=== PATIENT | female | born 1935 | race Caucasian/White ===

== ENCOUNTER 2017-11-23 16:14 | Inpatient (IN) | payer MEDICARE, OTHER ==
[~2017-11-23] VITALS: Ht 167.6 cm; Wt 190.0 kg
[~2017-11-23 16:14] MED LIST: BUDE200IP IH; BUDE200IP INH; CHOL10002 PO; CITRACAL + D E1 EACH PO; CYCL0.05OP OP; Cipro500 MG PO; Cranberry300 MG PO; ERGO400 PO; ESTR2 PO; Eye Drops15 ML OP; Flagyl250 MG PO; GABA300 PO; HYDCHL25 PO; Kristalose20 GM PO; LEVSOD200 PO; LOPE2C PO; METO25ER PO; MULVITB&C PO; MULVITMIND PO; NIFE60ER PO; Nexium40 MG PO; OCUVITE EYE +1 EACH PO; OXYB5 PO; PANT40 PO; PROBIOTIC1 EAC1 PO; PROM25 PO; SERT50 PO; SPIHYD PO; SPIR25 PO; SYNTHROID0.2 MG PO; Zofran Odt4 MG SL
[2017-11-23 17:47] LABS: BASOPHILS ABSOLUTE AUTO 0.04 K/mm3 (0.00-0.23); BASOPHILS PERCENT AUTO 1 % (0-2); EOSINOPHILS ABSOLUTE AUTO 0.44 K/mm3 (0.00-0.68); EOSINOPHILS PERCENT AUTO 5 % (0-6); Hematocrit 39.1 % (33.0-51.0); IMMATURE GRAN ABSOLUTE AUTO 0.04 K/mm3 (0.00-0.10); IMMATURE GRAN PERCENT AUTO 1 % (0-1); LYMPHOCYTES ABSOLUTE AUTO 1.33 K/mm3 (0.84-5.20); LYMPHOCYTES PERCENT AUTO 15 % (21-46); MONOCYTES ABSOLUTE AUTO 0.58 K/mm3 (0.16-1.47); MONOCYTES PERCENT AUTO 7 % (4-13); Mean Corpuscular HGB 29.9 pg (26.0-34.0); Mean Corpuscular HGB Conc 33.2 g/dL (31.5-36.5); Mean Corpuscular Volume 90 fL (80-100); Mean Platelet Volume 9.3 fL (9.1-12.4); NEUTROPHILS ABSOLUTE AUTO 6.19 K/mm3 (1.96-9.15); NEUTROPHILS PERCENT AUTO 72 % (41-73); Platelet Count 270 K/mm3 (150-400); RDW Standard Deviation 42.8 fL (35.1-46.3); Red Blood Cell Count 4.35 M/mm3 (3.80-5.20); White Blood Cell Count 8.62 K/mm3 (4.00-11.30)
[2017-11-23 18:04] LABS: Albumin, Blood 3.6 g/dL (3.4-5.0); Albumin/Globulin Ratio 0.9 (0.8-1.8); Bilirubin, Total 0.5 mg/dL (0.1-1.0); Bun/Creatinine Ratio 11.7 (12.0-20.0); Calcium, Blood 8.9 mg/dL (8.5-10.1); Creatinine, Blood 1.37 mg/dL (0.40-1.00); Globulin, Blood 3.9 g/dL (2.2-4.0); Potassium, Blood 3.9 mmol/L (3.5-5.5); Total Protein, Blood 7.5 g/dL (6.4-8.2)
[2017-11-23] MEDS ORDERED: Hair, Skin & N1 EACH PO (18:27)
[2017-11-23 19:41] LABS: Free Thyroxine 1.16 ng/dL (0.70-1.60)
[2017-11-23 19:43] LABS: Thyroid Stimulating Hormone 1.9 uIU/mL (0.360-4.800); Triiodothyronine, Free 2.05 pg/mL (2.18-3.98)
[2017-11-24 00:56] LABS: Bilirubin, Urine Neg (Neg); Blood, Urine Neg (Neg); Glucose Qualitative, Urine Neg (Neg); Ketones, Urine Neg (Neg); Leukocyte Esterase, Urine Neg (Neg); Nitrite, Urine Neg (Neg); Protein, Urine Neg (Neg); Specific Gravity, Urine 1.005 (1.003-1.022); Urobilinogen, Urine NORM (Normal)
[2017-11-24 01:03] LABS: Appearance, Urine Clear (Clear); Color, Urine Yellow (P-Yellow)
[2017-11-24 05:16] LABS: Bun/Creatinine Ratio 13.3 (12.0-20.0); Calcium, Blood 8.4 mg/dL (8.5-10.1); Creatinine, Blood 1.2 mg/dL (0.40-1.00); Potassium, Blood 3.6 mmol/L (3.5-5.5)
[2017-11-25 15:19] LABS: Test Name BRABGM
[2017-11-27 04:05] LABS: M. pneumoniae Ab, IgG 0.167 U/L (<0.100)
[2017-12-03 10:08] LABS: Bartonella quintana IgG Negative; Bartonella quintana IgM Negative
== END 2017-11-25 16:23 | disposition home or self-care (01) | DRG 307 ==
LOC: ER 16:14 → MEDS 18:54
PROVIDERS: Emergency Medicine; Family Medicine; Internal Medicine Infectious Disease
DX: I08.0 Rheumatic disorders of both mitral and aortic valves (principal); E11.22 Type 2 diabetes mellitus with diabetic chronic kidney disease; J84.89 Other specified interstitial pulmonary diseases; E03.9 Hypothyroidism, unspecified; I12.9 Hypertensive chronic kidney disease with stage 1 through stage 4 chronic kidney disease, or unspecified chronic kidney disease; N18.3 Chronic kidney disease, stage 3 (moderate); G89.29 Other chronic pain; M25.511 Pain in right shoulder; Z88.2 Allergy status to sulfonamides; Z88.8 Allergy status to other drugs, medicaments and biological substances; Z79.899 Other long term (current) drug therapy; Z87.891 Personal history of nicotine dependence
CPT/HCPCS: 36415; 71046; 80048; 80053; 81003; 83036; 83605; 84439; 84443; 84481; 85025; 85651; 86611; 86622; 86631; 86632; 86638; 86713; 86738; 87040; 93005; 93010; 93306; 96365; 96375; 99285; J0295; J1580; J1650; J3370

== ENCOUNTER → 2018-04-04 | Outpatient (CLI) | payer MEDICARE, OTHER ==
[~2018-04-04] MED LIST changes: +Hair, Skin & N1 EACH PO
[2018-04-04 09:47] LABS: Source, Urine Voided
[2018-04-04 12:34] LABS: Appearance, Urine Clear (Clear); Bilirubin, Urine Neg (Neg); Blood, Urine Neg (Neg); Color, Urine Yellow (P-Yellow); Glucose Qualitative, Urine Neg (Neg); Ketones, Urine Neg (Neg); Leukocyte Esterase, Urine Neg (Neg); Nitrite, Urine Neg (Neg); Protein, Urine Neg (Neg); Urobilinogen, Urine NORM (Normal)
== END | disposition home or self-care (01) ==
LOC: LAB 09:46 → LAB SHORT 09:46
PROVIDERS: Internal Medicine
DX: R32 Unspecified urinary incontinence (principal)
CPT/HCPCS: 81003

== ENCOUNTER → 2019-06-26 | Outpatient (CLI) | payer MEDICARE, OTHER ==
[2019-06-26 08:59] LABS: Source, Urine Clean Catch
[2019-06-26 11:23] LABS: Appearance, Urine Clear (Clear); Bilirubin, Urine Neg (Neg); Blood, Urine Neg (Neg); Color, Urine Yellow (P-Yellow); Glucose Qualitative, Urine Neg (Neg); Ketones, Urine Neg (Neg); Leukocyte Esterase, Urine Neg (Neg); Nitrite, Urine Neg (Neg); Protein, Urine Neg (Neg); Specific Gravity, Urine 1.015 (1.003-1.022); Urobilinogen, Urine NORM (Normal)
== END | disposition home or self-care (01) ==
LOC: LAB 08:57 → LAB SHORT 08:57 → LAB FUT 06-21 15:10
PROVIDERS: Internal Medicine
DX: N39.0 Urinary tract infection, site not specified (principal)
CPT/HCPCS: 81003

== ENCOUNTER → 2019-08-30 | Outpatient (CLI) | payer MEDICARE, OTHER ==
[2019-09-05 14:31] LABS: Stool Occult Bld Immuno 1 Negative (NEGATIVE)
[2019-09-05 14:32] LABS: Stool Occult Bld Immuno 2 Negative (NEGATIVE); Stool Occult Bld Immuno 3 Negative (NEGATIVE)
== END | disposition home or self-care (01) ==
LOC: LAB 08-01 12:05 → LAB FUT 08-29 16:25
PROVIDERS: Internal Medicine
DX: N18.3 Chronic kidney disease, stage 3 (moderate) (principal); R19.5 Other fecal abnormalities
CPT/HCPCS: 82270

== ENCOUNTER 2019-11-27 13:59 | Emergency (ER) | payer MEDICARE, OTHER ==
[~2019-11-27] VITALS: Ht 167.6 cm; Wt 88.5 kg
[2019-11-27 14:27] LABS: BASOPHILS ABSOLUTE AUTO 0.03 K/mm3 (0.00-0.23); BASOPHILS PERCENT AUTO 0 % (0-2); EOSINOPHILS PERCENT AUTO 2 % (0-6); Hematocrit 43.1 % (33.0-51.0); Hemoglobin 14.1 g/dL (11.5-16.0); IMMATURE GRAN ABSOLUTE AUTO 0.03 K/mm3 (0.00-0.10); IMMATURE GRAN PERCENT AUTO 0 % (0-1); LYMPHOCYTES ABSOLUTE AUTO 0.85 K/mm3 (0.84-5.20); LYMPHOCYTES PERCENT AUTO 7 % (21-46); MONOCYTES ABSOLUTE AUTO 0.72 K/mm3 (0.16-1.47); MONOCYTES PERCENT AUTO 6 % (4-13); Mean Corpuscular HGB 29.1 pg (26.0-34.0); Mean Corpuscular HGB Conc 32.7 g/dL (31.5-36.5); Mean Corpuscular Volume 89 fL (80-100); Mean Platelet Volume 9.5 fL (9.1-12.4); NEUTROPHILS ABSOLUTE AUTO 10.12 K/mm3 (1.96-9.15); NEUTROPHILS PERCENT AUTO 85 % (41-73); Platelet Count 288 K/mm3 (150-400); RDW Coefficient Variation 12.6 % (11.7-14.2); RDW Standard Deviation 41.6 fL (35.1-46.3); Red Blood Cell Count 4.85 M/mm3 (3.80-5.20); White Blood Cell Count 11.95 K/mm3 (4.00-11.30)
[2019-11-27 14:55] LABS: Alanine Aminotransfer (ALT/SGP 17 U/L (12-78); Albumin, Blood 3.9 g/dL (3.4-5.0); Albumin/Globulin Ratio 0.9 (0.8-1.8); Alk Phos 84 U/L (50-136); Anion Gap 5 mmol/L (6-16); Aspartate Aminotrans (AST/SGOT 14 U/L (12-37); Bilirubin, Total 0.6 mg/dL (0.1-1.0); Blood Urea Nitrogen 13 mg/dL (8-24); CO2, Blood 28 mmol/L (21-32); Calcium, Blood 9.9 mg/dL (8.5-10.1); Chloride, Blood 100 mmol/L (98-108); Creatinine, Blood 0.93 mg/dL (0.40-1.00); Globulin, Blood 4.3 g/dL (2.2-4.0); Glomerular Filtration Rate >60 (60-); Glucose, Blood 160 mg/dL (70-99); Potassium, Blood 3.9 mmol/L (3.5-5.5); Sodium, Blood 133 mmol/L (136-145); Total Protein, Blood 8.2 g/dL (6.4-8.2); Troponin I <0.015 ng/mL (0.000-0.040)
[2019-11-27] MEDS ORDERED: Robaxin-750750 MG PO (17:48)
[2019-11-27] MEDS ORDERED: Ultram50 MG PO (17:48)
[2019-11-28] MEDS ORDERED: DULERA 200 MCG/13 GM INH (20:11)
[2019-11-28] MEDS ORDERED: DULO60 PO (20:11)
[2019-11-28] MEDS ORDERED: PROBIOTIC1 EAC1 (20:11)
[2019-11-28] MEDS ORDERED: PROAIR DIGIHAL90 MCG INH (20:12)
== END 2019-11-27 17:57 | disposition home or self-care (01) ==
LOC: ER 13:59
PROVIDERS: Physician Assistant
DX: R07.89 Other chest pain (principal); M25.512 Pain in left shoulder; M79.622 Pain in left upper arm; I10 Essential (primary) hypertension; Z88.8 Allergy status to other drugs, medicaments and biological substances; Z88.2 Allergy status to sulfonamides; Z88.1 Allergy status to other antibiotic agents; Z79.899 Other long term (current) drug therapy
CPT/HCPCS: 36415; 71046; 80053; 83690; 84484; 85025; 93005; 93010; 99284-25

== ENCOUNTER 2019-11-28 19:43 | Inpatient (IN) | payer MEDICARE, OTHER ==
[~2019-11-28] VITALS: Ht 167.6 cm; Wt 88.5 kg
[~2019-11-28 19:43] MED LIST changes: +Robaxin-750750 MG PO; +Ultram50 MG PO
[2019-11-28] MEDS ORDERED: DULO60 PO (20:11)
[2019-11-28] MEDS ORDERED: DULERA 200 MCG/13 GM INH (20:11)
[2019-11-28] MEDS ORDERED: PROBIOTIC1 EAC1 (20:11)
[2019-11-28] MEDS ORDERED: PROAIR DIGIHAL90 MCG INH (20:12)
[2019-11-28 20:33] LABS: BASOPHILS ABSOLUTE AUTO 0.02 K/mm3 (0.00-0.23); BASOPHILS PERCENT AUTO 0 % (0-2); EOSINOPHILS ABSOLUTE AUTO 0.07 K/mm3 (0.00-0.68); EOSINOPHILS PERCENT AUTO 0 % (0-6); Hematocrit 39.6 % (33.0-51.0); Hemoglobin 13.1 g/dL (11.5-16.0); IMMATURE GRAN ABSOLUTE AUTO 0.08 K/mm3 (0.00-0.10); IMMATURE GRAN PERCENT AUTO 1 % (0-1); LYMPHOCYTES ABSOLUTE AUTO 0.67 K/mm3 (0.84-5.20); LYMPHOCYTES PERCENT AUTO 4 % (21-46); MONOCYTES ABSOLUTE AUTO 1.68 K/mm3 (0.16-1.47); MONOCYTES PERCENT AUTO 10 % (4-13); Mean Corpuscular HGB 29.6 pg (26.0-34.0); Mean Corpuscular HGB Conc 33.1 g/dL (31.5-36.5); Mean Corpuscular Volume 89 fL (80-100); Mean Platelet Volume 9.6 fL (9.1-12.4); NEUTROPHILS ABSOLUTE AUTO 14.18 K/mm3 (1.96-9.15); NEUTROPHILS PERCENT AUTO 85 % (41-73); Platelet Count 225 K/mm3 (150-400); RDW Standard Deviation 42.4 fL (35.1-46.3); Red Blood Cell Count 4.43 M/mm3 (3.80-5.20)
[2019-11-28 20:38] LABS: Source, Urine Catheter
[2019-11-28 20:43] LABS: Bilirubin, Urine Neg (Neg); Blood, Urine Neg (Neg); Glucose Qualitative, Urine 1+ (Neg); Ketones, Urine Neg (Neg); Leukocyte Esterase, Urine Neg (Neg); Nitrite, Urine Neg (Neg); Protein, Urine 2+ (Neg); Specific Gravity, Urine 1.015 (1.003-1.022); Urobilinogen, Urine NORM (Normal)
[2019-11-28 20:50] LABS: Albumin, Blood 3.1 g/dL (3.4-5.0); Albumin/Globulin Ratio 0.8 (0.8-1.8); Bilirubin, Total 0.9 mg/dL (0.1-1.0); Bun/Creatinine Ratio 13.7 (12.0-20.0); Calcium, Blood 8.8 mg/dL (8.5-10.1); Creatinine, Blood 1.24 mg/dL (0.40-1.00); Potassium, Blood 3.8 mmol/L (3.5-5.5); Total Protein, Blood 7.1 g/dL (6.4-8.2)
[2019-11-28 20:55] LABS: Appearance, Urine Hazy (Clear); Color, Urine Yellow (P-Yellow)
[2019-11-28 20:56] LABS: Bacteria Rare /hpf; Red Blood Cells, Urine 0-2 /hpf (0-2); Squamous Epithelial Cells Many /hpf (Few); White Blood Cells, Urine 0-2 /hpf (0-5)
[2019-11-29 05:56] LABS: Hemoglobin 12.8 g/dL (11.5-16.0); Mean Corpuscular HGB 29.4 pg (26.0-34.0); Mean Platelet Volume 9.5 fL (9.1-12.4); Platelet Count 225 K/mm3 (150-400); RDW Coefficient Variation 12.9 % (11.7-14.2); RDW Standard Deviation 43.4 fL (35.1-46.3); Red Blood Cell Count 4.36 M/mm3 (3.80-5.20); White Blood Cell Count 16.32 K/mm3 (4.00-11.30)
[2019-11-29 06:02] LABS: Mean Corpuscular Volume 92 fL (80-100)
[2019-11-29 06:20] LABS: Albumin, Blood 2.9 g/dL (3.4-5.0); Albumin/Globulin Ratio 0.7 (0.8-1.8); Bilirubin, Total 0.9 mg/dL (0.1-1.0); Bun/Creatinine Ratio 14.7 (12.0-20.0); Calcium, Blood 8.6 mg/dL (8.5-10.1); Creatinine, Blood 1.36 mg/dL (0.40-1.00); Globulin, Blood 4.3 g/dL (2.2-4.0); Potassium, Blood 4.1 mmol/L (3.5-5.5); Total Protein, Blood 7.2 g/dL (6.4-8.2)
--- NOTE | 2019-11-29 11:01 | NUR ---
History, Chart, Medications and Allergies reviewed before start of procedure. Patient confirms NPO status and agrees with scheduled surgery. Pre-Op teaching done. Pt verbalizes understanding. Surgical site prepped with 2% Chlorhexidine cloth wipe. PT LS DIMINISHED WITH EXP WHEEZES NOTED ON R SIDE. DENIES DIFFICULTY BREATHING OR SOB.
--- NOTE | 2019-11-29 18:32 | NUR ---
SUMMARY SINCE ARRIVING POST OP, PT VERY DROWSY BUT AWAKENS EASILY. VSS. RESTING COMFORTABLY.
--- NOTE | 2019-11-30 02:30 | NUR ---
ASSUMED CARE OF PT. PT A/O, DENIES NEEDS AT THIS TIME. PLAN TO MONITOR AND TX PER ORDERS
--- NOTE | 2019-11-30 03:07 | NUR ---
SHIFT SUMMARY POD 1 LAP CHOLECYSTECTOMY. PT A/OX4 WITH VSS. ABD DRESSINGS C/D/I WITH NO DRAINAGE. UP TO BSC, NO VOID. IN AND CATH DONE X1. PT APPEARS TO HAVE SLEPT WELL T/O NIGHT. DENIED PAIN T/O SHIFT. IS CURRENTLY RESTING IN BED AT THIS TIME. REPORT GIVEN TO DOLLY SOLIS RN AT THIS TIME.
--- NOTE | 2019-11-30 05:39 | NUR ---
POD 1 S/P LAP ROSALINDA. PT VSS T/O NIGH 0.5LO2 NC IN PLACE. DRESSINGS CDI. PT REP PAIN [place], DECLINED PAIN MEDS. PO INTAKE MINIMAL, NEW ORDER FOR IVF REC. PT HAD NO C/O N/V, REP NO FLATUS YET. I/O CATH DONE X1. PO FLUIDS ENC. PT USING CALL LIGHT FOR ASSISTANCE, WILL CONT TO MONITOR UNTIL REP GIVEN TO DAY RN.
--- NOTE | 2019-11-30 09:00 | NUR ---
PT PLEASAANT COOP A/O X2. ABLE TO TELL ME PRES, , UNABLE TO TELL ME , DATE, AGE. DETAILS UNABLE TO BRING FORWARD. H/R REG, NO MURMER NOTED. NO TELE. LUNGS CLEAR, RESP EASY UNLABORED. TALKING 5-6 WORD SENTENCES WITH NO SOB NOTED. ON 1/2 L O2. BT HYPO. BUT SLIGHTLY THERE. ABS TENDER, SURG SITE CDI WITH GAUZE. VOIDS BSC 1 ASST. BED IN LOW POSITIOIN, CALL LITE IN REACH, CALLS APPROP. BED ALARM ON FOR SAFETY
--- NOTE | 2019-11-30 11:43 | NUR ---
Upon receiving an admit referral for spiritual care, I visit patient. Patient is lying in bed and alert. Patient's spouse, Cameron, is bedside. Patient immediately tells me that her Collar Closer Lockstitch Shai from the [facility] just left and that he prayed for her. Patient expresses no need for spiritual care. Patient shares about her life, family, cheondoism beliefs and current R.V. living arrangements. I listen empathically, normalize patient's experience and provide companionship. Patient and Gene respond well and show signs of an elevated mood.
--- NOTE | 2019-11-30 14:24 | NUR ---
PT NOT VOID SINCE 3AM 425 CC. 8 CC IN BLADDER PER SCAN. SPOKE TO DR ARIZA, ORDERS TO INCREASE FLUIDS. DONE
--- NOTE | 2019-11-30 16:42 | NUR ---
PT PLEASANT SINCE ADMIT. CONTINUES TO IMPROVE COGNITION. AT BEDSIDE. HAS HAD PHONE CALLS WITH FAMILY TODAY. NO OTHER CONCERNS AT THIS TIME. BED IN LOW POSITION,C ALL LITE IN REACH, CALLS APPROP
[2019-12-01 05:48] LABS: BASOPHILS ABSOLUTE AUTO 0.02 K/mm3 (0.00-0.23); BASOPHILS PERCENT AUTO 0 % (0-2); EOSINOPHILS ABSOLUTE AUTO 0.47 K/mm3 (0.00-0.68); EOSINOPHILS PERCENT AUTO 5 % (0-6); Hematocrit 29.8 % (33.0-51.0); Hemoglobin 9.7 g/dL (11.5-16.0); IMMATURE GRAN ABSOLUTE AUTO 0.05 K/mm3 (0.00-0.10); IMMATURE GRAN PERCENT AUTO 1 % (0-1); LYMPHOCYTES ABSOLUTE AUTO 0.68 K/mm3 (0.84-5.20); LYMPHOCYTES PERCENT AUTO 7 % (21-46); MONOCYTES ABSOLUTE AUTO 0.74 K/mm3 (0.16-1.47); MONOCYTES PERCENT AUTO 8 % (4-13); Mean Corpuscular HGB 29.7 pg (26.0-34.0); Mean Corpuscular HGB Conc 32.6 g/dL (31.5-36.5); Mean Corpuscular Volume 91 fL (80-100); Mean Platelet Volume 9.5 fL (9.1-12.4); NEUTROPHILS ABSOLUTE AUTO 7.66 K/mm3 (1.96-9.15); NEUTROPHILS PERCENT AUTO 80 % (41-73); Platelet Count 195 K/mm3 (150-400); Red Blood Cell Count 3.27 M/mm3 (3.80-5.20); White Blood Cell Count 9.62 K/mm3 (4.00-11.30)
[2019-12-01 06:14] LABS: Albumin, Blood 2.4 g/dL (3.4-5.0); Anion Gap 7 mmol/L (6-16); Blood Urea Nitrogen 27 mg/dL (8-24); Bun/Creatinine Ratio 20.5 (12.0-20.0); CO2, Blood 26 mmol/L (21-32); Calcium, Blood 8.1 mg/dL (8.5-10.1); Chloride, Blood 103 mmol/L (98-108); Creatinine, Blood 1.32 mg/dL (0.40-1.00); Glomerular Filtration Rate 41 (60-); Glucose, Blood 151 mg/dL (70-99); Phosphorus, Blood 2.5 mg/dL (2.5-4.9); Potassium, Blood 3.9 mmol/L (3.5-5.5); Sodium, Blood 136 mmol/L (136-145)
--- NOTE | 2019-12-01 07:31 | NUR ---
SHIFT SUMMARY: GUILHERME RESTED COMFORTABLY FOR THE MAJORITY OF THE SHIFT. SHE DID HAVE AN EPISODE OF CONFUSION DURING THE NIGHT WHEN SHE BECAME ANXIOUS STATING THAT SHE DID NOT KNOW WHERE SHE WAS, WHY SHE WAS HERE, AND WANTED TO KNOW WHERE HER WAS. SHE WAS ABLE TO BE REASSURED AND GOT BACK INTO BED. SHE IS ALERT & ORIENTED X 3 AT THIS TIME. LAP SITES X 4 ON ABDOMEN CLEAN, DRY, AND INTACT. SHE IS TOLERATING PO INTAKE WELL. SHE IS ANXIOUS TO GO HOME. SHE IS A STANDBY ASSIST WITH THE FWW. SHE IS URINTATING WITHOUT DIFFICULTY IN THE TOILET. SHE ASKED TO HAVE THE PAS OFF DURING THE NIGHT. SHE DOES NOT USE THE CALL LIGHT. BED ALARM ON FOR SAFETY. WILL REPORT TO DAY SHIFT RN.
--- NOTE | 2019-12-01 08:55 | NUR ---
dr campbell rounded on pt, discharge orders in
--- NOTE | 2019-12-01 09:10 | NUR ---
in room with pt
--- NOTE | 2019-12-01 10:00 | NUR ---
pt and provided with discharge teaching with stated understanding. peripheral IV removed WNL. pt transported to awaiting vehicle via wheelchair. pt's transported pt's belongings to vehicle
[2019-12-01] MEDS ORDERED: ACET325 PO (10:52)
== END 2019-12-01 11:09 | disposition home or self-care (01) | DRG 418 ==
LOC: ER 19:43 → ERHOLD 19:44 → SURS 19:44 → ERHOLD 19:44 → SURS 11-29 10:45
PROVIDERS: Emergency Medicine; Internal Medicine; Surgery; ADMIT Internal Medicine
PROC: BF03YZZ Plain Radiography of Gallbladder and Bile Ducts using Other Contrast (ICD-10-PCS; 2019-11-29)
PROC: 0FT44ZZ Resection of Gallbladder, Percutaneous Endoscopic Approach (ICD-10-PCS; principal; 2019-11-29 12:30)
DX: K80.00 Calculus of gallbladder with acute cholecystitis without obstruction (principal); N17.9 Acute kidney failure, unspecified; F03.90 Unspecified dementia, unspecified severity, without behavioral disturbance, psychotic disturbance, mood disturbance, and anxiety; E03.9 Hypothyroidism, unspecified; E11.22 Type 2 diabetes mellitus with diabetic chronic kidney disease; G47.33 Obstructive sleep apnea (adult) (pediatric); E86.0 Dehydration; N18.9 Chronic kidney disease, unspecified; I12.9 Hypertensive chronic kidney disease with stage 1 through stage 4 chronic kidney disease, or unspecified chronic kidney disease; Z87.891 Personal history of nicotine dependence
CPT/HCPCS: 36415; 71046; 74176; 74300; 80053; 80069; 81001; 82947; 83036; 83690; 85025; 85027; 88304; 93005; 93010; 94640; 94760; 96361; 96365; 96375; 96376; 99285-25; A9270; A9270-GY; C1729; J0330; J0690; J0692; J1650; J1885; J2250; J2405; J2704; J3010; J7030; J7120; P9612

== ENCOUNTER 2020-07-03 14:55 | Emergency (ER) | payer MEDICARE, OTHER ==
[~2020-07-03] VITALS: Ht 167.6 cm; Wt 79.8 kg
[~2020-07-03 14:55] MED LIST changes: -AMOCLA875 PO; -DONEPEZIL HCL5 M2 PO; +ERGO400 PO; -ESTRADIOL2 MG PO; -FLUTICASONE-SA1 EAC8 INH; -NEURONTIN300 MG PO; -Vitamin D2000 UNIT PO
[2020-07-03 16:41] LABS: BASOPHILS ABSOLUTE AUTO 0.03 K/mm3 (0.00-0.23); BASOPHILS PERCENT AUTO 0 % (0-2); EOSINOPHILS ABSOLUTE AUTO 0.22 K/mm3 (0.00-0.68); EOSINOPHILS PERCENT AUTO 3 % (0-6); Hematocrit 44.3 % (33.0-51.0); Hemoglobin 14.2 g/dL (11.5-16.0); IMMATURE GRAN ABSOLUTE AUTO 0.01 K/mm3 (0.00-0.10); IMMATURE GRAN PERCENT AUTO 0 % (0-1); LYMPHOCYTES ABSOLUTE AUTO 1.12 K/mm3 (0.84-5.20); LYMPHOCYTES PERCENT AUTO 15 % (21-46); MONOCYTES PERCENT AUTO 8 % (4-13); Mean Corpuscular HGB 27.7 pg (26.0-34.0); Mean Corpuscular HGB Conc 32.1 g/dL (31.5-36.5); Mean Corpuscular Volume 87 fL (80-100); Mean Platelet Volume 9.3 fL (9.1-12.4); NEUTROPHILS PERCENT AUTO 73 % (41-73); Platelet Count 253 K/mm3 (150-400); RDW Coefficient Variation 13.7 % (11.7-14.2); RDW Standard Deviation 42.9 fL (35.1-46.3); Red Blood Cell Count 5.12 M/mm3 (3.80-5.20); White Blood Cell Count 7.38 K/mm3 (4.00-11.30)
[2020-07-03 17:01] LABS: Alanine Aminotransfer (ALT/SGP 14 U/L (12-78); Albumin, Blood 3.9 g/dL (3.4-5.0); Albumin/Globulin Ratio 0.9 (0.8-1.8); Alk Phos 73 U/L (50-136); Anion Gap 5 mmol/L (6-16); Aspartate Aminotrans (AST/SGOT 15 U/L (12-37); Bilirubin, Total 0.6 mg/dL (0.1-1.0); Blood Urea Nitrogen 13 mg/dL (8-24); Bun/Creatinine Ratio 12.9 (12.0-20.0); CO2, Blood 28 mmol/L (21-32); Calcium, Blood 9.4 mg/dL (8.5-10.1); Chloride, Blood 106 mmol/L (98-108); Creatinine, Blood 1.01 mg/dL (0.40-1.00); Globulin, Blood 4.5 g/dL (2.2-4.0); Glomerular Filtration Rate 56 (60-); Glucose, Blood 136 mg/dL (70-99); Potassium, Blood 3.9 mmol/L (3.5-5.5); Sodium, Blood 139 mmol/L (136-145); Total Protein, Blood 8.4 g/dL (6.4-8.2); Troponin I <0.015 ng/mL (0.000-0.040)
[2020-07-03 18:05] LABS: Source, Urine Clean Catch
[2020-07-03 18:11] LABS: Appearance, Urine Cloudy (Clear); Bilirubin, Urine Neg (Neg); Blood, Urine 2+ (Neg); Color, Urine Yellow (P-Yellow); Glucose Qualitative, Urine Neg (Neg); Ketones, Urine 1+ (Neg); Leukocyte Esterase, Urine Neg (Neg); Nitrite, Urine Neg (Neg); Protein, Urine 2+ (Neg); Urobilinogen, Urine 1+ (Normal)
[2020-07-03] MEDS ORDERED: Nexium40 MG PO (18:30)
[2020-07-03 18:42] LABS: Bacteria Many /hpf; Squamous Epithelial Cells Many /hpf (Few)
[2020-07-03] MEDS ORDERED: AMOCLA875 PO (19:38)
== END 2020-07-03 20:03 | disposition home or self-care (01) ==
LOC: ER 14:55
PROVIDERS: Emergency Medicine; Physician Assistant
DX: K51.00 Ulcerative (chronic) pancolitis without complications (principal); I10 Essential (primary) hypertension; E03.9 Hypothyroidism, unspecified; Z88.6 Allergy status to analgesic agent; Z88.2 Allergy status to sulfonamides; Z88.1 Allergy status to other antibiotic agents; Z88.8 Allergy status to other drugs, medicaments and biological substances; Z79.899 Other long term (current) drug therapy; Z87.891 Personal history of nicotine dependence
CPT/HCPCS: 36415; 74176; 80053; 81001; 83690; 84484; 85025; 87086; 93005; 93010; 99284-25

== ENCOUNTER → 2020-07-03 | Outpatient (CLI) | payer MEDICARE, OTHER ==
[~2020-07-03] MED LIST changes: +ACET325 PO; +AMOCLA875 PO; +DONEPEZIL HCL5 M2 PO; +DULERA 200 MCG/13 GM INH; +DULO60 PO; -ERGO400 PO; +ESTRADIOL2 MG PO; +FLUTICASONE-SA1 EAC8 INH; +NEURONTIN300 MG PO; +PROAIR DIGIHAL90 MCG INH; +PROBIOTIC1 EAC1; +Vitamin D2000 UNIT PO
== END ==
LOC: LAB 10:05 → LAB SHORT 10:05
DX: R30.0 Dysuria (principal)
CPT/HCPCS: 87086

== ENCOUNTER 2020-07-10 10:33 | Observation (INO) | payer MEDICARE, OTHER ==
[~2020-07-10] VITALS: Ht 167.6 cm; Wt 76.5 kg
[~2020-07-10 10:33] MED LIST changes: +AMOCLA875 PO; -ERGO400 PO; +Vitamin D2000 UNIT PO
[2020-07-10 11:23] LABS: BASOPHILS ABSOLUTE AUTO 0.04 K/mm3 (0.00-0.23); BASOPHILS PERCENT AUTO 1 % (0-2); EOSINOPHILS ABSOLUTE AUTO 0.58 K/mm3 (0.00-0.68); EOSINOPHILS PERCENT AUTO 7 % (0-6); Hemoglobin 15.1 g/dL (11.5-16.0); IMMATURE GRAN ABSOLUTE AUTO 0.02 K/mm3 (0.00-0.10); IMMATURE GRAN PERCENT AUTO 0 % (0-1); LYMPHOCYTES ABSOLUTE AUTO 1.17 K/mm3 (0.84-5.20); LYMPHOCYTES PERCENT AUTO 15 % (21-46); MONOCYTES ABSOLUTE AUTO 0.52 K/mm3 (0.16-1.47); MONOCYTES PERCENT AUTO 7 % (4-13); Mean Corpuscular HGB 27.7 pg (26.0-34.0); Mean Corpuscular HGB Conc 32.1 g/dL (31.5-36.5); Mean Corpuscular Volume 86 fL (80-100); Mean Platelet Volume 9.9 fL (9.1-12.4); NEUTROPHILS ABSOLUTE AUTO 5.62 K/mm3 (1.96-9.15); NEUTROPHILS PERCENT AUTO 71 % (41-73); Platelet Count 262 K/mm3 (150-400); Red Blood Cell Count 5.45 M/mm3 (3.80-5.20); White Blood Cell Count 7.95 K/mm3 (4.00-11.30)
[2020-07-10 11:48] LABS: Albumin, Blood 3.9 g/dL (3.4-5.0); Bilirubin, Total 0.7 mg/dL (0.1-1.0); Bun/Creatinine Ratio 13.4 (12.0-20.0); Calcium, Blood 9.7 mg/dL (8.5-10.1); Creatinine, Blood 1.12 mg/dL (0.40-1.00); Globulin, Blood 4.1 g/dL (2.2-4.0); Potassium, Blood 3.8 mmol/L (3.5-5.5)
[2020-07-10 12:08] LABS: Source, Urine Clean Catch
[2020-07-10 12:12] LABS: Bilirubin, Urine Neg (Neg); Blood, Urine 1+ (Neg); Glucose Qualitative, Urine Neg (Neg); Ketones, Urine Neg (Neg); Leukocyte Esterase, Urine 1+ (Neg); Nitrite, Urine Neg (Neg); Protein, Urine 1+ (Neg); Specific Gravity, Urine 1.015 (1.003-1.022); Urobilinogen, Urine NORM (Normal)
[2020-07-10 12:55] LABS: Appearance, Urine Hazy (Clear); Color, Urine Yellow (P-Yellow)
[2020-07-10 12:58] LABS: Bacteria Few /hpf; Squamous Epithelial Cells Many /hpf (Few)
[2020-07-10 12:59] LABS: Yeast/Fungi Urine Mod /hpf
[2020-07-10] MEDS ORDERED: NEURONTIN300 MG PO (14:25)
[2020-07-10] MEDS ORDERED: FLUTICASONE-SA1 EAC8 INH (14:25)
[2020-07-10] MEDS ORDERED: ESTRADIOL2 MG PO (14:26)
[2020-07-10] MEDS ORDERED: DONEPEZIL HCL5 M2 PO (14:26)
--- NOTE | 2020-07-10 17:36 | NUR ---
RECEIVED REPORT FROM TYLER PEREYRA RN, @ 4236. PATIENT ARRIVED TO ROOM 353 @ 1620. PATIENT IS PLEASANT AND COOPERATIVE WITH STAFF. COMPLETED ADMIT ASSESSMENT, H&P AND MED REC WITH THE ASSISTANCE OF THE PATIENT. ORTHOSTATIC BP'S CHECK WITH A MAJOR DROP FROM 145 SBP WHILE LAYING TO 99 SBP WHILE STANDING. IVF RUNNING PER EMAR. PATIENT CALLS APPROPRIATELY FOR STAFF ASSIST NEEDED. WILL CONTINUE TO MONITOR AND PROVIDE CARE NEEDED.
[2020-07-10 21:47] LABS: Free Thyroxine 0.64 ng/dL (0.70-1.60); Triiodothyronine, Free 0.85 pg/mL (2.18-3.98)
--- NOTE | 2020-07-11 05:06 | NUR ---
SHIFT SUMMARY: BP 151/62. AFEB. AA0X3. ABLE TO COMMUNICATE NEEDS. UP ONCE TO USE BSC. DENIES LIGHTHEADEDNESS/DIZZINESS UPON STANDING. IV LEVOTHYROXINE ADMINISTERED ORDERED. PT APPEARS TO HAVE SLEPT WELL THROUGH MOST OF THE NIGHT. NSR, BBB, 70 PER TELE BAGGAGE AGENT. NO CARDIAC EVENTS OVERNIGHT. WILL CONT TO MONITOR.
[2020-07-11 05:28] LABS: BASOPHILS ABSOLUTE AUTO 0.04 K/mm3 (0.00-0.23); BASOPHILS PERCENT AUTO 1 % (0-2); EOSINOPHILS ABSOLUTE AUTO 0.42 K/mm3 (0.00-0.68); EOSINOPHILS PERCENT AUTO 7 % (0-6); Hematocrit 39.9 % (33.0-51.0); Hemoglobin 12.6 g/dL (11.5-16.0); IMMATURE GRAN ABSOLUTE AUTO 0.02 K/mm3 (0.00-0.10); IMMATURE GRAN PERCENT AUTO 0 % (0-1); LYMPHOCYTES ABSOLUTE AUTO 1.56 K/mm3 (0.84-5.20); LYMPHOCYTES PERCENT AUTO 25 % (21-46); MONOCYTES PERCENT AUTO 8 % (4-13); Mean Corpuscular HGB 27.5 pg (26.0-34.0); Mean Corpuscular HGB Conc 31.6 g/dL (31.5-36.5); Mean Corpuscular Volume 87 fL (80-100); Mean Platelet Volume 10.6 fL (9.1-12.4); NEUTROPHILS ABSOLUTE AUTO 3.67 K/mm3 (1.96-9.15); NEUTROPHILS PERCENT AUTO 59 % (41-73); Platelet Count 202 K/mm3 (150-400); RDW Coefficient Variation 14.1 % (11.7-14.2); RDW Standard Deviation 44.6 fL (35.1-46.3); Red Blood Cell Count 4.59 M/mm3 (3.80-5.20); White Blood Cell Count 6.21 K/mm3 (4.00-11.30)
[2020-07-11 06:04] LABS: Albumin, Blood 3.1 g/dL (3.4-5.0); Albumin/Globulin Ratio 0.9 (0.8-1.8); Bilirubin, Total 0.6 mg/dL (0.1-1.0); Bun/Creatinine Ratio 13.6 (12.0-20.0); Calcium, Blood 8.5 mg/dL (8.5-10.1); Creatinine, Blood 0.95 mg/dL (0.40-1.00); Globulin, Blood 3.3 g/dL (2.2-4.0); Potassium, Blood 3.4 mmol/L (3.5-5.5); Total Protein, Blood 6.4 g/dL (6.4-8.2)
--- NOTE | 2020-07-11 14:30 | NUR ---
DISCHARGE INSTRUCTIONS COMPLETED AND DISCUSSED WITH PT EXPRESSING UNDERSTANDING. NO NEW SCRIPTS NOTED. TO CURB VIA W/C.
== END 2020-07-11 14:13 | disposition home or self-care (01) ==
LOC: ER 10:33 → MEDS 10:34
PROVIDERS: Emergency Medicine; ADMIT Hospitalist
DX: R55 Syncope and collapse (principal); R11.10 Vomiting, unspecified; I12.9 Hypertensive chronic kidney disease with stage 1 through stage 4 chronic kidney disease, or unspecified chronic kidney disease; E11.22 Type 2 diabetes mellitus with diabetic chronic kidney disease; N18.30 Chronic kidney disease, stage 3 unspecified; E03.9 Hypothyroidism, unspecified; K21.9 Gastro-esophageal reflux disease without esophagitis; E55.9 Vitamin D deficiency, unspecified; E05.40 Thyrotoxicosis factitia without thyrotoxic crisis or storm; G31.84 Mild cognitive impairment of uncertain or unknown etiology; Z66 Do not resuscitate; Z88.1 Allergy status to other antibiotic agents; Z88.2 Allergy status to sulfonamides; Z88.6 Allergy status to analgesic agent; Z88.8 Allergy status to other drugs, medicaments and biological substances; Z79.51 Long term (current) use of inhaled steroids; Z79.2 Long term (current) use of antibiotics; Z79.899 Other long term (current) drug therapy; Z87.891 Personal history of nicotine dependence; Z96.653 Presence of artificial knee joint, bilateral; Z90.710 Acquired absence of both cervix and uterus
CPT/HCPCS: 36415; 70450; 80053; 81001; 82947; 84439; 84443; 84481; 85025; 87086; 87106; 93005; 93010; 94640; 94760; 96361; 96372; 96374; 96376; 97110; 97161; 99285-25; A9270-GY; G0378; J1650; J7030; J7040

== ENCOUNTER 2021-07-08 18:11 | Inpatient (IN) | payer MEDICARE, OTHER ==
[~2021-07-08] VITALS: Ht 167.6 cm; Wt 81.6 kg
[~2021-07-08 18:11] MED LIST changes: +DONEPEZIL HCL5 M2 PO; +ESTRADIOL2 MG PO; +FLUTICASONE-SA1 EAC8 INH; +NEURONTIN300 MG PO
[2021-07-08] MEDS ORDERED: Cranberry400 MG PO (18:52)
[2021-07-08] MEDS ORDERED: PROBIOTIC1 EA13 (18:53)
[2021-07-08] MEDS ORDERED: VITAMIN D310 MC4 PO (18:53)
[2021-07-08 18:56] LABS: BASOPHILS ABSOLUTE AUTO 0.02 K/mm3 (0.00-0.23); BASOPHILS PERCENT AUTO 0 % (0-2); EOSINOPHILS ABSOLUTE AUTO 0.27 K/mm3 (0.00-0.68); EOSINOPHILS PERCENT AUTO 4 % (0-6); Hematocrit 40.3 % (33.0-51.0); Hemoglobin 13.4 g/dL (11.5-16.0); IMMATURE GRAN ABSOLUTE AUTO 0.04 K/mm3 (0.00-0.10); IMMATURE GRAN PERCENT AUTO 1 % (0-1); LYMPHOCYTES ABSOLUTE AUTO 0.99 K/mm3 (0.84-5.20); LYMPHOCYTES PERCENT AUTO 13 % (21-46); MONOCYTES ABSOLUTE AUTO 0.45 K/mm3 (0.16-1.47); MONOCYTES PERCENT AUTO 6 % (4-13); Mean Corpuscular HGB Conc 33.3 g/dL (31.5-36.5); Mean Corpuscular Volume 90 fL (80-100); Mean Platelet Volume 9.8 fL (9.1-12.4); NEUTROPHILS PERCENT AUTO 77 % (41-73); Platelet Count 164 K/mm3 (150-400); RDW Coefficient Variation 13.5 % (11.7-14.2); RDW Standard Deviation 44.1 fL (35.1-46.3); Red Blood Cell Count 4.47 M/mm3 (3.80-5.20); White Blood Cell Count 7.77 K/mm3 (4.00-11.30)
[2021-07-08 19:32] LABS: International Normalized Ratio 1.11; Prothrombin Time Results 11.6 Sec (9.7-11.5)
[2021-07-08 19:33] LABS: Albumin, Blood 3.3 g/dL (3.4-5.0); Albumin/Globulin Ratio 0.9 (0.8-1.8); Bilirubin, Total 0.5 mg/dL (0.1-1.0); Bun/Creatinine Ratio 15.1 (12.0-20.0); Calcium, Blood 8.7 mg/dL (8.5-10.1); Creatinine, Blood 1.06 mg/dL (0.40-1.00); Free Thyroxine 0.55 ng/dL (0.70-1.60); Globulin, Blood 3.7 g/dL (2.2-4.0); Potassium, Blood 3.8 mmol/L (3.5-5.5); Thyroid Stimulating Hormone 89.8 uIU/mL (0.360-4.800)
[2021-07-08 20:12] LABS: Source, Urine Catheter
[2021-07-08 20:12] LABS: Phosphorus, Blood 4.1 mg/dL (2.5-4.9)
[2021-07-08 20:15] LABS: Appearance, Urine Clear (Clear); Bilirubin, Urine Neg (Neg); Blood, Urine Neg (Neg); Color, Urine Yellow (P-Yellow); Glucose Qualitative, Urine Neg (Neg); Ketones, Urine Neg (Neg); Leukocyte Esterase, Urine Neg (Neg); Nitrite, Urine Neg (Neg); Protein, Urine 1+ (Neg); Specific Gravity, Urine 1.025 (1.003-1.022); Urobilinogen, Urine NORM (Normal)
--- NOTE | 2021-07-09 01:21 | NUR ---
PATIENT IS A NEW ADMIT FROM THE ED. AXOX 3 AND THREE PERSON TRANSFER FROM [facility] TO BED. ON 2L O2 NC AND RA BASELINE. PATIENT NAUSEOUS VOMITING ON ADMIT WITH POSITIONAL CHANGE. DR RODAS IN ROOM FOR ASSESSMENT. DENIES CHEST PAIN AND SOB. ORIENTED TO ROOM AND CALL LIGHT SYSTEM. HYPERTENSIVE ON ADMIT. CALL LIGHT IN REACH.
--- NOTE | 2021-07-09 01:24 | NUR ---
TELEMETRY PLACED AND TECH REPORTS NSR 65. NORMAL SALINE STARTED @ 75mL/HR X ONE BAG. IV ZOFRAN GIVEN FOR N/V AND IV APRESOLINE 10 MG GIVEN FOR SBP>170. BP 176/79 AND 182/86 BEFORE IV APRESOLINE GIVEN. WILL REASSESS.
--- NOTE | 2021-07-09 02:09 | NUR ---
BP RECHECK: 150/66 DOWN FROM 182/86 AFTER IV APRESOLINE 10 MG GIVEN.
--- NOTE | 2021-07-09 05:08 | NUR ---
SHIFT SUMMARY PATIENT NAUSEOUS X TWO WITH REPOSITIONING OR SIPS OF WATER WITH MEDICATION. IV ZOFRAN GIVEN PER EMAR. MECLIZINE PO 25 MG GIVEN PER EMAR FOR DIZZINESS X ONE. AXOX 3 AND BEDREST. ON 2L O2 NC AND RA BASELINE. PIVS REMAIN INTACT. NS INFUSING AT 75mL/HR X ONE. HYPERTENSIVE ON ADMIT AND IV APRESOLINE GIVEN FOR SBP>170. SBP DOWN TO 148/66 FROM 182/86. NPO. DENIES PAIN AND SOB. AFEBRILE. CALL LIGHT IN REACH. BED IN LOWEST POSITION. WILL CONTINUE TO MONITOR UNTIL DAY SHIFT NURSE ASSUMES CARE.
[2021-07-09 06:48] LABS: BASOPHILS ABSOLUTE AUTO 0.02 K/mm3 (0.00-0.23); BASOPHILS PERCENT AUTO 0 % (0-2); EOSINOPHILS PERCENT AUTO 0 % (0-6); Hematocrit 42.5 % (33.0-51.0); Hemoglobin 13.6 g/dL (11.5-16.0); IMMATURE GRAN ABSOLUTE AUTO 0.03 K/mm3 (0.00-0.10); IMMATURE GRAN PERCENT AUTO 0 % (0-1); LYMPHOCYTES ABSOLUTE AUTO 0.74 K/mm3 (0.84-5.20); LYMPHOCYTES PERCENT AUTO 6 % (21-46); MONOCYTES ABSOLUTE AUTO 0.14 K/mm3 (0.16-1.47); MONOCYTES PERCENT AUTO 1 % (4-13); Mean Corpuscular HGB 29.1 pg (26.0-34.0); Mean Corpuscular Volume 91 fL (80-100); Mean Platelet Volume 9.9 fL (9.1-12.4); NEUTROPHILS ABSOLUTE AUTO 11.37 K/mm3 (1.96-9.15); NEUTROPHILS PERCENT AUTO 93 % (41-73); Platelet Count 185 K/mm3 (150-400); RDW Coefficient Variation 13.7 % (11.7-14.2); RDW Standard Deviation 45.8 fL (35.1-46.3); Red Blood Cell Count 4.67 M/mm3 (3.80-5.20)
[2021-07-09 07:07] LABS: Albumin/Globulin Ratio 0.7 (0.8-1.8); Bilirubin, Total 0.4 mg/dL (0.1-1.0); Bun/Creatinine Ratio 14.9 (12.0-20.0); Calcium, Blood 8.7 mg/dL (8.5-10.1); Creatinine, Blood 0.94 mg/dL (0.40-1.00); Globulin, Blood 4.1 g/dL (2.2-4.0); Potassium, Blood 4.2 mmol/L (3.5-5.5); Total Protein, Blood 7.1 g/dL (6.4-8.2)
[2021-07-09 13:20] LABS: U Amphetamine Screen Not Detected; U Barbituate Screen Not Detected; U Benzodiazapine Screen Not Detected; U Buprenorphine Screen Not Detected; U Cannabinoids Screen DETECTED; U Cocaine Screen Not Detected; U Methadone Screen Not Detected; U Methamphetamine Screen Not Detected; U Opiates Screen Not Detected; U Oxycodone Screen Not Detected; U Phencyclidine Screen Not Detected; U Propoxyphene Screen Not Detected
--- NOTE | 2021-07-09 16:37 | NUR ---
SHIFT SUMMARY PATIENT DENIES PAIN AND SHORTNESS OF BREATH. PATIENT REPORTS NAUSEA. PATIENT VOMITTED THIS MORNING AFTER GETTING UP TO USE THE COMMODE. PATIENT REPORTS DIZZINESS WITH MOVEMENT. MEDICATED PER EMAR. PATIENT REPORTS LESS NAUSEA AND DIZZINESS IN AFTERNOON. PT WORKED WITH PATIENT AND PATIENT WAS ABLE TO WALK TO BATHROOM WITH MINIMAL DIZZINESS. PATIENT CHANGED TO CLEAR LIQUID DIET. PATIENT IS PLEASANTLY CONFUSED AND COOPERATIVE. PATIENT IS A SBA TO THE BATHROOM.
[2021-07-10 04:53] LABS: Hematocrit 36.4 % (33.0-51.0); Hemoglobin 11.8 g/dL (11.5-16.0); Mean Corpuscular HGB 29.4 pg (26.0-34.0); Mean Corpuscular HGB Conc 32.4 g/dL (31.5-36.5); Mean Corpuscular Volume 91 fL (80-100); Mean Platelet Volume 9.5 fL (9.1-12.4); Platelet Count 190 K/mm3 (150-400); RDW Coefficient Variation 13.9 % (11.7-14.2); RDW Standard Deviation 45.8 fL (35.1-46.3); Red Blood Cell Count 4.02 M/mm3 (3.80-5.20); White Blood Cell Count 12.69 K/mm3 (4.00-11.30)
[2021-07-10 05:22] LABS: Bun/Creatinine Ratio 11.7 (12.0-20.0); Calcium, Blood 8.8 mg/dL (8.5-10.1); Creatinine, Blood 1.03 mg/dL (0.40-1.00); Potassium, Blood 3.6 mmol/L (3.5-5.5); Thyroxine (T4) 6.3 ug/dL (4.8-13.9)
--- NOTE | 2021-07-10 07:29 | NUR ---
FURNITURE DECALS INSPECTOR SUMMARY ADMITTED FOR HYPOTHYROID. PT IS FULL CODE. PT BECOMES INCREASINGLY CONFUSED THROUGHOUT THE SHIFT, WAKING UP MULTIPLE TIMES NOT KNOWING WHERE SHE IS. PT REORIENTED BUT FRUSTRATED. NO OTHER CONCERNS THIS SHIFT.
[2021-07-10] MEDS ORDERED: LIOT5 PO (11:20)
[2021-07-10] MEDS ORDERED: CLOP75 PO (11:20)
--- NOTE | 2021-07-10 12:01 | NUR ---
DISCHARGE PATIENT TRANSFERRED VIA WHEELCHAIR TO PRIVATE VEHICLE. DISCHARGE INSTRUCTIONS EXPLAINED TO PATIENT AND . BOTH STATED UNDERSTANDING. PACKET SENT WITH PATIENT. BELONGINGS SENT WITH PATIENT. IV REMOVED WITHOUT DIFFICULTY. TELE REMOVED WITHOUT DIFFICULTY. MEDICATIONS FAXED TO PREFERRED PHARMACY. FOLLOW UP WITH PCP SCHEDULED.
== END 2021-07-10 11:52 | disposition home health service (06) | DRG 65 ==
LOC: ER 18:11 → MEDS 21:11 → ER 22:42 → MEDS 22:48
PROVIDERS: Emergency Medicine; Internal Medicine; ADMIT Internal Medicine
DX: I63.9 Cerebral infarction, unspecified (principal); N17.9 Acute kidney failure, unspecified; E03.9 Hypothyroidism, unspecified; Z96.653 Presence of artificial knee joint, bilateral; Z96.642 Presence of left artificial hip joint; K21.9 Gastro-esophageal reflux disease without esophagitis; E11.22 Type 2 diabetes mellitus with diabetic chronic kidney disease; I12.9 Hypertensive chronic kidney disease with stage 1 through stage 4 chronic kidney disease, or unspecified chronic kidney disease; N18.30 Chronic kidney disease, stage 3 unspecified; E55.9 Vitamin D deficiency, unspecified; G31.84 Mild cognitive impairment of uncertain or unknown etiology; Z88.6 Allergy status to analgesic agent; Z88.2 Allergy status to sulfonamides; Z88.1 Allergy status to other antibiotic agents; Z88.8 Allergy status to other drugs, medicaments and biological substances; Z90.710 Acquired absence of both cervix and uterus; Z98.890 Other specified postprocedural states
CPT/HCPCS: 36415; 70450; 70551; 71045; 80048; 80053; 80400; 82533; 83735; 83880; 84100; 84436; 84439; 84443; 85025; 85027; 85610; 85730; 93005; 93010; 96374; 96375; 97110; 97112; 97129; 97130; 97162; 97165; 97535; 99285-25; A9270; J0360; J0834; J1650; J1720; J2405; J2765; J7030

== ENCOUNTER 2021-08-15 20:20 | Emergency (ER) | payer MEDICARE, OTHER ==
[~2021-08-15] VITALS: Ht 167.6 cm; Wt 72.6 kg
[~2021-08-15 20:20] MED LIST changes: +CLOP75 PO; +Cranberry400 MG PO; +LIOT5 PO; +PROBIOTIC1 EA13; +VITAMIN D310 MC4 PO
[2021-08-15 22:33] LABS: BASOPHILS ABSOLUTE AUTO 0.02 K/mm3 (0.00-0.23); BASOPHILS PERCENT AUTO 0 % (0-2); EOSINOPHILS ABSOLUTE AUTO 0.22 K/mm3 (0.00-0.68); EOSINOPHILS PERCENT AUTO 4 % (0-6); Hemoglobin 12.1 g/dL (11.5-16.0); IMMATURE GRAN ABSOLUTE AUTO 0.02 K/mm3 (0.00-0.10); IMMATURE GRAN PERCENT AUTO 0 % (0-1); LYMPHOCYTES ABSOLUTE AUTO 0.31 K/mm3 (0.84-5.20); LYMPHOCYTES PERCENT AUTO 5 % (21-46); MONOCYTES ABSOLUTE AUTO 0.45 K/mm3 (0.16-1.47); MONOCYTES PERCENT AUTO 8 % (4-13); Mean Corpuscular HGB 29.6 pg (26.0-34.0); Mean Corpuscular HGB Conc 32.7 g/dL (31.5-36.5); Mean Corpuscular Volume 91 fL (80-100); Mean Platelet Volume 9.2 fL (9.1-12.4); NEUTROPHILS ABSOLUTE AUTO 4.96 K/mm3 (1.96-9.15); NEUTROPHILS PERCENT AUTO 83 % (41-73); Platelet Count 201 K/mm3 (150-400); RDW Coefficient Variation 13.4 % (11.7-14.2); RDW Standard Deviation 44.9 fL (35.1-46.3); Red Blood Cell Count 4.09 M/mm3 (3.80-5.20); White Blood Cell Count 5.98 K/mm3 (4.00-11.30)
[2021-08-15 22:53] LABS: Albumin/Globulin Ratio 0.7 (0.8-1.8); Bilirubin, Total 0.4 mg/dL (0.1-1.0); Bun/Creatinine Ratio 16.5 (12.0-20.0); Creatinine, Blood 1.15 mg/dL (0.40-1.00); Globulin, Blood 4.2 g/dL (2.2-4.0); Total Protein, Blood 7.2 g/dL (6.4-8.2)
[2021-08-16 00:43] LABS: Source, Urine Clean Catch
[2021-08-16 00:45] LABS: Bilirubin, Urine Neg (Neg); Blood, Urine 2+ (Neg); Glucose Qualitative, Urine Neg (Neg); Ketones, Urine Neg (Neg); Leukocyte Esterase, Urine 3+ (Neg); Nitrite, Urine Neg (Neg); Protein, Urine 1+ (Neg); Specific Gravity, Urine 1.015 (1.003-1.022); Urobilinogen, Urine NORM (Normal)
[2021-08-16 00:51] LABS: Appearance, Urine Hazy (Clear); Color, Urine Yellow (P-Yellow)
[2021-08-16 00:52] LABS: Bacteria Many /hpf; Red Blood Cells, Urine 0-2 /hpf (0-2); Squamous Epithelial Cells Few /hpf (Few); White Blood Cells, Urine TNTC /hpf (0-5)
[2021-08-16] MEDS ORDERED: CEPH500 PO (01:05)
== END 2021-08-16 03:00 | disposition home or self-care (01) ==
LOC: ER 20:20
PROVIDERS: Emergency Medicine
DX: S09.90XA Unspecified injury of head, initial encounter (principal); N39.0 Urinary tract infection, site not specified; R53.1 Weakness; I10 Essential (primary) hypertension; Z88.8 Allergy status to other drugs, medicaments and biological substances; Z79.899 Other long term (current) drug therapy; W19.XXXA Unspecified fall, initial encounter
CPT/HCPCS: 36415; 70450; 80053; 81001; 85025; 87086; 96365; 99285-25; J0696

== ENCOUNTER 2022-10-15 12:44 | Inpatient (IN) | payer MEDICARE, OTHER ==
[~2022-10-15] VITALS: Ht 167.6 cm; Wt 74.8 kg
[~2022-10-15 12:44] MED LIST changes: +ADALAT CC30 M2 PO; +CEPH500 PO; +DULERA 100 MCG/13 GM; +Spironolactone25 MG
[2022-10-15 13:22] LABS: BASOPHILS ABSOLUTE AUTO 0.06 K/mm3 (0.00-0.23); BASOPHILS PERCENT AUTO 0 % (0-2); EOSINOPHILS ABSOLUTE AUTO 0.07 K/mm3 (0.00-0.68); EOSINOPHILS PERCENT AUTO 0 % (0-6); Hematocrit 39.9 % (33.0-51.0); Hemoglobin 13.4 g/dL (11.5-16.0); IMMATURE GRAN ABSOLUTE AUTO 0.11 K/mm3 (0.00-0.10); IMMATURE GRAN PERCENT AUTO 1 % (0-1); LYMPHOCYTES ABSOLUTE AUTO 0.81 K/mm3 (0.84-5.20); LYMPHOCYTES PERCENT AUTO 4 % (21-46); MONOCYTES ABSOLUTE AUTO 1.26 K/mm3 (0.16-1.47); MONOCYTES PERCENT AUTO 6 % (4-13); Mean Corpuscular HGB 29.8 pg (26.0-34.0); Mean Corpuscular HGB Conc 33.6 g/dL (31.5-36.5); Mean Corpuscular Volume 89 fL (80-100); NEUTROPHILS ABSOLUTE AUTO 17.26 K/mm3 (1.96-9.15); NEUTROPHILS PERCENT AUTO 88 % (41-73); Platelet Count 345 K/mm3 (150-400); RDW Standard Deviation 42.5 fL (35.1-46.3); White Blood Cell Count 19.57 K/mm3 (4.00-11.30)
[2022-10-15 13:47] LABS: Albumin, Blood 3.2 g/dL (3.4-5.0); Albumin/Globulin Ratio 0.7 (0.8-1.8); Bilirubin, Total 0.9 mg/dL (0.1-1.0); Bun/Creatinine Ratio 15.3 (12.0-20.0); Calcium, Blood 9.5 mg/dL (8.5-10.1); Creatinine, Blood 1.44 mg/dL (0.40-1.00); Globulin, Blood 4.9 g/dL (2.2-4.0); Potassium, Blood 3.8 mmol/L (3.5-5.5); Total Protein, Blood 8.1 g/dL (6.4-8.2)
[2022-10-15 13:54] LABS: Influenza A, PCR NEGATIVE (NEGATIVE); Influenza B, PCR NEGATIVE (NEGATIVE); SARS-Cov-2 (COVID-19) PCR, MMC NEGATIVE (NEGATIVE)
[2022-10-15 14:05] LABS: Resp Syncytial Virus, PCR POSITIVE (NEGATIVE)
[2022-10-15] MEDS ORDERED: ALBU90OI6 INH (14:24)
[2022-10-15] MEDS ORDERED: ASPI81CH PO (14:24)
[2022-10-15] MEDS ORDERED: ESTR2 PO (14:25)
[2022-10-15] MEDS ORDERED: ALDACTAZIDE 251 EACH PO (14:27)
[2022-10-15 16:28] LABS: Source, Urine Clean Catch
[2022-10-15 16:32] LABS: Appearance, Urine Hazy (Clear); Bilirubin, Urine Neg (Neg); Blood, Urine 1+ (Neg); Color, Urine Yellow (P-Yellow); Glucose Qualitative, Urine Neg (Neg); Ketones, Urine Neg (Neg); Leukocyte Esterase, Urine 1+ (Neg); Nitrite, Urine Neg (Neg); Protein, Urine 2+ (Neg); Urobilinogen, Urine 1+ (Normal)
[2022-10-15 16:53] LABS: Bacteria Many /hpf; Red Blood Cells, Urine 0-2 /hpf (0-2); Squamous Epithelial Cells Many /hpf (Few)
[2022-10-16 06:18] LABS: BASOPHILS ABSOLUTE AUTO 0.04 K/mm3 (0.00-0.23); BASOPHILS PERCENT AUTO 0 % (0-2); EOSINOPHILS ABSOLUTE AUTO 0.44 K/mm3 (0.00-0.68); EOSINOPHILS PERCENT AUTO 3 % (0-6); Hematocrit 33.2 % (33.0-51.0); Hemoglobin 11.1 g/dL (11.5-16.0); IMMATURE GRAN ABSOLUTE AUTO 0.09 K/mm3 (0.00-0.10); IMMATURE GRAN PERCENT AUTO 1 % (0-1); LYMPHOCYTES PERCENT AUTO 6 % (21-46); MONOCYTES ABSOLUTE AUTO 0.91 K/mm3 (0.16-1.47); MONOCYTES PERCENT AUTO 7 % (4-13); Mean Corpuscular HGB 29.8 pg (26.0-34.0); Mean Corpuscular HGB Conc 33.4 g/dL (31.5-36.5); Mean Corpuscular Volume 89 fL (80-100); Mean Platelet Volume 8.9 fL (9.1-12.4); NEUTROPHILS ABSOLUTE AUTO 11.61 K/mm3 (1.96-9.15); NEUTROPHILS PERCENT AUTO 83 % (41-73); Platelet Count 252 K/mm3 (150-400); RDW Coefficient Variation 13.1 % (11.7-14.2); RDW Standard Deviation 42.7 fL (35.1-46.3); Red Blood Cell Count 3.72 M/mm3 (3.80-5.20); White Blood Cell Count 13.99 K/mm3 (4.00-11.30)
[2022-10-16 06:40] LABS: Bun/Creatinine Ratio 15.1 (12.0-20.0); Calcium, Blood 8.2 mg/dL (8.5-10.1); Creatinine, Blood 1.19 mg/dL (0.40-1.00); Potassium, Blood 3.6 mmol/L (3.5-5.5)
--- NOTE | 2022-10-16 07:56 | NUR ---
GUILHERME ARRIVED BEFORE MIDNIGHT VIA GURNEY TO ROOM 332. LUNG SOUNDS COARSE, VERY LOOSE HACKING NONPRODUCTIVE COUGH. ROSALINA DM ORDERED FOR PATIENT BUT PATIENT WAS SLEEPING BY THE TIME IT CAME TO FLOOR. GUILHERME ALSO HAS AN EXTREMELY FLAT AFFECT. ALMOST APPEARING SAD. WHEN ASKED IF SHE WAS NEEDING TO TALK SHE STATED "NO, I'M FINE".
--- NOTE | 2022-10-16 17:46 | NUR ---
PATIENT IS WORKING WITH RESPIRATORY THERAPY, FOR BREATHING TREATMENTS. SOB STILL PRESENT WITH WHEEZING. PATIENT HAD PT/OT AND SAT IN CHAIR MOST OF TODAY. HERE TO VISIT. HYBRID TECHNOLOGIST WORKING TO ESTABLISH CARE FOR DISCHARGE. PATIENTS VOICE IS DIMINISHED. DENIES SORE THROAT. COUGH- PRODUCTIVE YELLOW/MARTIN. MOOD GOOD. COOPERATIVE. URINE CULTURE SHOWS NO GROWTH DAY ONE.
[2022-10-17 06:58] LABS: Bun/Creatinine Ratio 15.3 (12.0-20.0); Calcium, Blood 8.5 mg/dL (8.5-10.1); Creatinine, Blood 1.11 mg/dL (0.40-1.00); Potassium, Blood 3.5 mmol/L (3.5-5.5)
[2022-10-17 07:16] LABS: Hematocrit 33.3 % (33.0-51.0); Hemoglobin 11.3 g/dL (11.5-16.0); Mean Corpuscular HGB 29.9 pg (26.0-34.0); Mean Corpuscular HGB Conc 33.9 g/dL (31.5-36.5); Mean Corpuscular Volume 88 fL (80-100); Mean Platelet Volume 9.1 fL (9.1-12.4); Platelet Count 284 K/mm3 (150-400); RDW Coefficient Variation 12.9 % (11.7-14.2); RDW Standard Deviation 41.7 fL (35.1-46.3); Red Blood Cell Count 3.78 M/mm3 (3.80-5.20); White Blood Cell Count 15.68 K/mm3 (4.00-11.30)
--- NOTE | 2022-10-17 11:47 | NUR ---
CALLED DR LIPSCOMB- PT HAS BEEN ON ROOM AIR FOR 2 HOURS SATS 97-100% ON ROOM AIR. PT EVAL ORDERED TODAY HOWEVER PT WAS EVALUATED YESTERDAY WITH HH RECOMENDATION. PLAN IS FOR THE PT TO DC HOME WITH HOME HEALTH.
[2022-10-17] MEDS ORDERED: LEVOFLOXACIN500 M1 PO (15:22)
[2022-10-17] MEDS ORDERED: ROBITUSSIN DM PO (15:33)
[2022-10-17] MEDS ORDERED: DOXY100 PO (15:49)
--- NOTE | 2022-10-17 16:54 | NUR ---
DISCHARGE NOTE- PT AND SPOUSE WERE GIVEN VERBAL AND WRITTEN DISCHARGE INSTRUCTIONS AND ACKNOWLEDGED UNDERSTANDING OF THEM. PT SPOUSE INITIALLY REQUESTED MEDS SENT TO [facility] HOWEVER PT DC'D LATER THAN HE EXPECTED AND HE REQUESTED THEY BE REFAXED TO [facility] [place]. DIRECTORY CARRIER REFAXED THE MEDICATION LIST TO [facility]. PT PG WAS DC'D AND SHE WAS ESCORTED OUT VIA WC BY THE CHIEF CONSOLE OPERATOR, NO S&S OF DISTRESS NOTED AT T ETIME OF DISCHARGE.
== END 2022-10-17 16:24 | disposition home health service (06) | DRG 871 ==
LOC: ER 12:44 → MEDS 21:28
PROVIDERS: Emergency Medicine; Family Medicine; Internal Medicine; ADMIT Student in an Organized Health Care Education/Training Program
DX: A41.1 Sepsis due to other specified staphylococcus (principal); J96.01 Acute respiratory failure with hypoxia; N39.0 Urinary tract infection, site not specified; N18.30 Chronic kidney disease, stage 3 unspecified; E03.9 Hypothyroidism, unspecified; I12.9 Hypertensive chronic kidney disease with stage 1 through stage 4 chronic kidney disease, or unspecified chronic kidney disease; B97.4 Respiratory syncytial virus as the cause of diseases classified elsewhere; Z66 Do not resuscitate; E11.22 Type 2 diabetes mellitus with diabetic chronic kidney disease; I45.81 Long QT syndrome; B96.20 Unspecified Escherichia coli [E. coli] as the cause of diseases classified elsewhere; E86.0 Dehydration; Z20.822 Contact with and (suspected) exposure to COVID-19; E05.90 Thyrotoxicosis, unspecified without thyrotoxic crisis or storm; G31.84 Mild cognitive impairment of uncertain or unknown etiology; Z96.653 Presence of artificial knee joint, bilateral; Z96.642 Presence of left artificial hip joint; Z98.890 Other specified postprocedural states; Z88.8 Allergy status to other drugs, medicaments and biological substances; Z87.19 Personal history of other diseases of the digestive system; Z86.73 Personal history of transient ischemic attack (TIA), and cerebral infarction without residual deficits; Z88.2 Allergy status to sulfonamides; Z90.710 Acquired absence of both cervix and uterus; Z79.899 Other long term (current) drug therapy; Z79.82 Long term (current) use of aspirin; Z79.51 Long term (current) use of inhaled steroids
CPT/HCPCS: 0241U; 36415; 71046; 80048; 80053; 81001; 82947; 83605; 84145; 84484; 85025; 85027; 87040; 87077; 87086; 87186; 93005; 93010; 94640; 94664; 94760; 96361; 96365; 97110; 97116; 97162; 97166; 97530; 99285-25; A9270; J0696; J1650; J7030; J7042

== ENCOUNTER → 2023-08-17 | Outpatient (CLI) | payer MEDICARE, OTHER ==
[~2023-08-17] MED LIST changes: +ALBU90OI6 INH; +ALDACTAZIDE 251 EACH PO; +ASPI81CH PO; +DOXY100 PO; +LEVOFLOXACIN500 M1 PO; +ROBITUSSIN DM PO
[2023-08-17 12:05] LABS: Source, Urine Clean Catch
[2023-08-17 15:53] LABS: Appearance, Urine Hazy (Clear); Bilirubin, Urine Neg (Neg); Blood, Urine Neg (Neg); Color, Urine Yellow (P-Yellow); Glucose Qualitative, Urine Neg (Neg); Ketones, Urine Neg (Neg); Leukocyte Esterase, Urine Neg (Neg); Nitrite, Urine Neg (Neg); Protein, Urine Neg (Neg); Specific Gravity, Urine 1.015 (1.003-1.022); Urobilinogen, Urine NORM (Normal)
[2023-08-17 16:23] LABS: Bacteria Many /hpf; Red Blood Cells, Urine 0-2 /hpf (0-2); Squamous Epithelial Cells Many /hpf (Few); Transitional Epithelial Cells Rare /hpf (0-Rare); White Blood Cells, Urine 0-2 /hpf (0-5)
== END ==
LOC: LAB SHORT 12:04 → LAB 12:04 → LAB FUT 08-11 15:15
PROVIDERS: Internal Medicine
DX: R82.90 Unspecified abnormal findings in urine (principal)
CPT/HCPCS: 81001; 87086

== ENCOUNTER → 2023-09-14 | Outpatient (CLI) | payer MEDICARE, OTHER ==
[2023-09-21 07:11] LABS: HOURS COLLECTED 24 hr; TOTAL PROTEIN,URINE-PER VOLUME 7 mg/dL; TOTAL VOLUME 200 mL; URINE 24 HOUR PROTEIN 14 mg/d (40-150)
== END ==
LOC: LAB 09:00 → LAB SHORT 09:00 → LAB FUT 08-16 16:15
PROVIDERS: Internal Medicine
DX: R79.89 Other specified abnormal findings of blood chemistry (principal)
CPT/HCPCS: 81050; 84156; 84166; 86335

== ENCOUNTER 2024-05-29 17:41 | Emergency (ER) | payer MEDICARE, OTHER ==
[~2024-05-29] VITALS: Ht 167.6 cm; Wt 59.0 kg
[2024-05-29 17:46] VITALS: BP 156/77
[2024-05-29 18:24] LABS: BASOPHILS ABSOLUTE AUTO 0.02 K/mm3 (0.00-0.23); BASOPHILS PERCENT AUTO 0 % (0-2); EOSINOPHILS ABSOLUTE AUTO 0.16 K/mm3 (0.00-0.68); EOSINOPHILS PERCENT AUTO 2 % (0-6); Hematocrit 42.3 % (33.0-51.0); Hemoglobin 14.2 g/dL (11.5-16.0); IMMATURE GRAN ABSOLUTE AUTO 0.03 K/mm3 (0.00-0.10); IMMATURE GRAN PERCENT AUTO 0 % (0-1); LYMPHOCYTES ABSOLUTE AUTO 1.12 K/mm3 (0.84-5.20); LYMPHOCYTES PERCENT AUTO 12 % (21-46); MONOCYTES ABSOLUTE AUTO 0.78 K/mm3 (0.16-1.47); MONOCYTES PERCENT AUTO 9 % (4-13); Mean Corpuscular HGB 29.2 pg (26.0-34.0); Mean Corpuscular HGB Conc 33.6 g/dL (31.5-36.5); Mean Corpuscular Volume 87 fL (80-100); Mean Platelet Volume 9.7 fL (9.1-12.4); NEUTROPHILS ABSOLUTE AUTO 6.97 K/mm3 (1.96-9.15); NEUTROPHILS PERCENT AUTO 77 % (41-73); Platelet Count 201 K/mm3 (150-400); RDW Coefficient Variation 13.4 % (11.7-14.2); RDW Standard Deviation 42.7 fL (35.1-46.3); Red Blood Cell Count 4.87 M/mm3 (3.80-5.20); White Blood Cell Count 9.08 K/mm3 (4.00-11.30)
[2024-05-29 18:46] LABS: Albumin, Blood 3.7 g/dL (3.4-5.0); Albumin/Globulin Ratio 0.8 (0.8-1.8); Bilirubin, Total 0.7 mg/dL (0.1-1.0); Calcium, Blood 9.7 mg/dL (8.5-10.1); Creatinine, Blood 1.09 mg/dL (0.40-1.00); Globulin, Blood 4.8 g/dL (2.2-4.0); Potassium, Blood 3.8 mmol/L (3.5-5.5); Total Protein, Blood 8.5 g/dL (6.4-8.2)
== END 2024-05-29 20:50 | disposition home or self-care (01) ==
LOC: ER 17:41
PROVIDERS: Physician Assistant
DX: U07.1 COVID-19 (principal); E03.9 Hypothyroidism, unspecified; I12.9 Hypertensive chronic kidney disease with stage 1 through stage 4 chronic kidney disease, or unspecified chronic kidney disease; E11.22 Type 2 diabetes mellitus with diabetic chronic kidney disease; N18.30 Chronic kidney disease, stage 3 unspecified; Z79.890 Hormone replacement therapy; Z79.899 Other long term (current) drug therapy; Z79.82 Long term (current) use of aspirin; Z88.8 Allergy status to other drugs, medicaments and biological substances; Z86.73 Personal history of transient ischemic attack (TIA), and cerebral infarction without residual deficits
CPT/HCPCS: 71046; 80053; 85025; 99283-25

== ENCOUNTER 2024-06-01 10:55 | Emergency (ER) | payer MEDICARE, OTHER ==
[~2024-06-01] VITALS: Ht 167.6 cm; Wt 59.0 kg
[2024-06-01] MEDS ORDERED: NS 1,000 ML IV SCH ×2 (11:15→13:30)
[2024-06-01 11:25] LABS: Source, Urine Fem Cath
[2024-06-01 11:26] LABS: BASOPHILS ABSOLUTE AUTO 0.01 K/mm3 (0.00-0.23); BASOPHILS PERCENT AUTO 0 % (0-2); EOSINOPHILS ABSOLUTE AUTO 0.07 K/mm3 (0.00-0.68); EOSINOPHILS PERCENT AUTO 1 % (0-6); Hematocrit 30.4 % (33.0-51.0); Hemoglobin 9.7 g/dL (11.5-16.0); IMMATURE GRAN ABSOLUTE AUTO 0.04 K/mm3 (0.00-0.10); IMMATURE GRAN PERCENT AUTO 1 % (0-1); LYMPHOCYTES ABSOLUTE AUTO 0.56 K/mm3 (0.84-5.20); LYMPHOCYTES PERCENT AUTO 8 % (21-46); MONOCYTES ABSOLUTE AUTO 0.47 K/mm3 (0.16-1.47); MONOCYTES PERCENT AUTO 7 % (4-13); Mean Corpuscular HGB 29.3 pg (26.0-34.0); Mean Corpuscular HGB Conc 31.9 g/dL (31.5-36.5); NEUTROPHILS ABSOLUTE AUTO 5.49 K/mm3 (1.96-9.15); NEUTROPHILS PERCENT AUTO 83 % (41-73); Platelet Count 141 K/mm3 (150-400); RDW Coefficient Variation 13.5 % (11.7-14.2); RDW Standard Deviation 45.4 fL (35.1-46.3); Red Blood Cell Count 3.31 M/mm3 (3.80-5.20); White Blood Cell Count 6.64 K/mm3 (4.00-11.30)
[2024-06-01 11:27] LABS: Mean Corpuscular Volume 92 fL (80-100)
[2024-06-01 11:31] LABS: Bilirubin, Urine Neg (Neg); Blood, Urine Neg (Neg); Glucose Qualitative, Urine Neg (Neg); Ketones, Urine 1+ (Neg); Leukocyte Esterase, Urine 1+ (Neg); Nitrite, Urine Neg (Neg); Protein, Urine 2+ (Neg); Urobilinogen, Urine NORM (Normal)
[2024-06-01 11:39] LABS: Appearance, Urine Hazy (Clear); Color, Urine Yellow (P-Yellow)
[2024-06-01 11:42] LABS: Red Blood Cells, Urine 0-2 /hpf (0-2)
[2024-06-01 11:43] LABS: Bacteria Few /hpf; Squamous Epithelial Cells Few /hpf (Few); Yeast/Fungi Urine Rare /hpf
[2024-06-01 12:24] LABS: Albumin, Blood 1.7 g/dL (3.4-5.0); Albumin/Globulin Ratio 0.7 (0.8-1.8); Bilirubin, Total 0.7 mg/dL (0.1-1.0); Bun/Creatinine Ratio 23.6 (12.0-20.0); Calcium, Blood 5.3 mg/dL (8.5-10.1); Creatinine, Blood 0.64 mg/dL (0.40-1.00); Globulin, Blood 2.6 g/dL (2.2-4.0); Potassium, Blood 2.5 mmol/L (3.5-5.5); Total Protein, Blood 4.3 g/dL (6.4-8.2)
[2024-06-01] MEDS ORDERED: CALCIUM GLUC IN NACL, ISO-OSM 100 ML IV ONE (13:05)
[2024-06-01] MEDS ORDERED: Potassium Chloride 20 MEQ TabCR PO ONE (13:05)
[2024-06-01] MEDS ORDERED: Potassium Chl 20MEQ/Water100ML 100 ML IV ONE (13:05)
[2024-06-01 15:23] LABS: Bicarbonate Venous 22.8 mmol/L (24.0-30.0)
[2024-06-01 16:55] VITALS: BP 126/72
[2024-06-02] MEDS ORDERED: BETA.05TCA TOP (18:00)
[2024-06-02] MEDS ORDERED: NASAL SPRAY88 ML (18:01)
[2024-06-02] MEDS ORDERED: DEEP SEA (18:04)
[2024-06-02] MEDS ORDERED: ONDA4 PO (18:06)
[2024-06-02] MEDS ORDERED: MULVITA PO (18:06)
[2024-06-02] MEDS ORDERED: Acetaminophen650 M1 PO (18:08)
== END 2024-06-01 17:00 | disposition home or self-care (01) ==
LOC: ER 10:55
PROVIDERS: Emergency Medicine
DX: E87.6 Hypokalemia (principal); E83.51 Hypocalcemia; D64.9 Anemia, unspecified; E05.90 Thyrotoxicosis, unspecified without thyrotoxic crisis or storm; I12.9 Hypertensive chronic kidney disease with stage 1 through stage 4 chronic kidney disease, or unspecified chronic kidney disease; N18.30 Chronic kidney disease, stage 3 unspecified; E11.9 Type 2 diabetes mellitus without complications; Z86.73 Personal history of transient ischemic attack (TIA), and cerebral infarction without residual deficits; Z79.82 Long term (current) use of aspirin; Z79.899 Other long term (current) drug therapy; Z88.1 Allergy status to other antibiotic agents; Z88.8 Allergy status to other drugs, medicaments and biological substances
CPT/HCPCS: 71045; 80053; 81001; 82803; 85025; 87086; 93005; 93010; 96361; 96365; 96366; 99285-25; A9270; J0612; J3480; J7030; P9612

== ENCOUNTER 2024-06-02 10:06 | Inpatient (IN) | payer MEDICARE, OTHER ==
[~2024-06-02] VITALS: Ht 167.6 cm; Wt 64.3 kg
[2024-06-02 10:45] LABS: BASOPHILS ABSOLUTE AUTO 0.03 K/mm3 (0.00-0.23); BASOPHILS PERCENT AUTO 0 % (0-2); EOSINOPHILS ABSOLUTE AUTO 0.17 K/mm3 (0.00-0.68); EOSINOPHILS PERCENT AUTO 2 % (0-6); Hematocrit 40.7 % (33.0-51.0); Hemoglobin 12.9 g/dL (11.5-16.0); IMMATURE GRAN ABSOLUTE AUTO 0.07 K/mm3 (0.00-0.10); IMMATURE GRAN PERCENT AUTO 1 % (0-1); LYMPHOCYTES ABSOLUTE AUTO 0.71 K/mm3 (0.84-5.20); LYMPHOCYTES PERCENT AUTO 9 % (21-46); MONOCYTES PERCENT AUTO 9 % (4-13); Mean Corpuscular HGB 28.3 pg (26.0-34.0); Mean Corpuscular HGB Conc 31.7 g/dL (31.5-36.5); Mean Corpuscular Volume 89 fL (80-100); NEUTROPHILS PERCENT AUTO 79 % (41-73); Platelet Count 232 K/mm3 (150-400); RDW Coefficient Variation 13.6 % (11.7-14.2); RDW Standard Deviation 44.2 fL (35.1-46.3); Red Blood Cell Count 4.56 M/mm3 (3.80-5.20); White Blood Cell Count 8.18 K/mm3 (4.00-11.30)
[2024-06-02 10:55] LABS: Bun/Creatinine Ratio 17.6 (12.0-20.0); Creatinine, Blood 0.97 mg/dL (0.40-1.00); Magnesium, Blood 1.7 mg/dL (1.6-2.4); Potassium, Blood 3.7 mmol/L (3.5-5.5)
[2024-06-02 10:56] LABS: Calcium, Blood 8.6 mg/dL (8.5-10.1)
[2024-06-02] MEDS ORDERED: NS 1,000 ML IV SCH ×2 (11:15→14:00)
[2024-06-02] MEDS ORDERED: Potassium Chloride 20 MEQ TabCR PO ONE (11:20)
[2024-06-02] MEDS ORDERED: Acetaminophen 325 MG TABLET PO PRN (13:50)
[2024-06-02] MEDS ORDERED: Mag Sulfate 1 GM/D5% 100ML 100 ML IV STA (15:20)
[2024-06-02] MEDS ORDERED: Metoprolol Tartrate 1 MG/ML 5 ML VIAL IV ONE (15:27)
[2024-06-02 16:09] VITALS: BP 141/87
[2024-06-02 16:15] VITALS: BP 134/71
[2024-06-02 16:28] VITALS: BP 122/65
--- NOTE | 2024-06-02 16:30 | NUR ---
ARRIVAL TO PCU patient arrived to pcu ar approx 1535. patient is alert and oriented to place, town, person, and self. patient does not know the date, says it is 2006 and didn't know the month and thought it was fall when asked what season we are in. is at bedside and said this is patient baseline mentation and is forgetful. said patient had stroke about three years ago and has had short term memory loss since then. patient had a fall last night at [facility], but otherwise per patient and has not had a fall for awhile. patient denies chest pain/pressure, or pain, or shortness of breath. patient has coarse rhonchi crackes bilateral lungs. spo2 >90% on room air. patient tele sinus tach 110s. patient had order for one time lopressor iv, and received dose and heart rate in the 80s now. blood pressure stable. patient has pressure sore to coccyx and reddness to heels. pictures in chart. see admit assessment for further detials. admit is complete bedside med rec. need to call for list. md tay said she has the med list from the facility and discussed medication with patient and patient . md tay in room discussing plan of care with patient and patient . meds in applesauce with speech eval tomorrow. orders in place.
[2024-06-02] MEDS ORDERED: Albuterol HFA200 ACT/6.7 GM INH INH PRN (17:10)
--- NOTE | 2024-06-02 17:55 | NUR ---
shift summary see previous note. vitals remain stable. med rec complete. list is in paper chart. patient okayd per md tay to do bedside swallow and give po medication if patient tolerates. patient passed bedside swallow and took po medication in appelsauce. order for meds in applesauce in place, see orders. no acute changes. plan remains up to date
[2024-06-02] MEDS ORDERED: BETA.05TCA TOP (18:00)
[2024-06-02] MEDS ORDERED: Metoprolol Tartrate 25 MG Tab PO SCH (18:00)
[2024-06-02] MEDS ORDERED: NASAL SPRAY88 ML (18:01)
[2024-06-02] MEDS ORDERED: DEEP SEA (18:04)
[2024-06-02] MEDS ORDERED: MULVITA PO (18:06)
[2024-06-02] MEDS ORDERED: ONDA4 PO (18:06)
[2024-06-02] MEDS ORDERED: Acetaminophen650 M1 PO (18:08)
[2024-06-02 19:54] VITALS: BP 125/62
[2024-06-02] MEDS ORDERED: Gabapentin 300 MG Cap PO SCH (21:00)
[2024-06-02 23:56] VITALS: BP 122/59
[2024-06-03 03:08] VITALS: BP 134/112
[2024-06-03 03:56] LABS: BASOPHILS ABSOLUTE AUTO 0.02 K/mm3 (0.00-0.23); BASOPHILS PERCENT AUTO 0 % (0-2); EOSINOPHILS ABSOLUTE AUTO 0.03 K/mm3 (0.00-0.68); EOSINOPHILS PERCENT AUTO 0 % (0-6); IMMATURE GRAN ABSOLUTE AUTO 0.06 K/mm3 (0.00-0.10); IMMATURE GRAN PERCENT AUTO 1 % (0-1); LYMPHOCYTES ABSOLUTE AUTO 0.74 K/mm3 (0.84-5.20); LYMPHOCYTES PERCENT AUTO 8 % (21-46); MONOCYTES ABSOLUTE AUTO 0.56 K/mm3 (0.16-1.47); MONOCYTES PERCENT AUTO 6 % (4-13); Mean Corpuscular HGB 29.1 pg (26.0-34.0); Mean Corpuscular HGB Conc 32.4 g/dL (31.5-36.5); Mean Corpuscular Volume 90 fL (80-100); NEUTROPHILS ABSOLUTE AUTO 7.55 K/mm3 (1.96-9.15); NEUTROPHILS PERCENT AUTO 84 % (41-73); Platelet Count 235 K/mm3 (150-400); RDW Coefficient Variation 13.9 % (11.7-14.2); RDW Standard Deviation 45.1 fL (35.1-46.3); Red Blood Cell Count 4.13 M/mm3 (3.80-5.20); White Blood Cell Count 8.96 K/mm3 (4.00-11.30)
[2024-06-03 04:21] LABS: Bun/Creatinine Ratio 16.2 (12.0-20.0); Calcium, Blood 8.1 mg/dL (8.5-10.1); Creatinine, Blood 1.05 mg/dL (0.40-1.00); Potassium, Blood 4.2 mmol/L (3.5-5.5)
--- NOTE | 2024-06-03 05:41 | NUR ---
SHIFT SUMMARY ASSUMED CARE OF PT AT 1900. PT IS A/OX2. HEART SOUNDS REGULAR. LUNG SOUNDS VERY COURSE. PT HAD RATTLE IN THROAT. PT HAS A WEEK NON PRODUCTIVE COUGH. PT A 1P SBA TO BSC. PT WAS VERY IMPULSIVE AND ATTEMPTING TO GET OUT OF BED TOO LOOK FOR BUT THEN PT SETTLED AND RESTED IN BED WITH EYES CLOSED.
[2024-06-03] MEDS ORDERED: Omeprazole 20 MG CapCR PO SCH (06:00)
[2024-06-03 07:44] VITALS: BP 131/64
[2024-06-03] MEDS ORDERED: Spironolactone 25 MG Tab PO SCH (09:00)
[2024-06-03] MEDS ORDERED: HydroCHLOROthiazide 25 mg Tab PO SCH ×2 (09:00)
[2024-06-03] MEDS ORDERED: Enoxaparin 40 MG/0.4 ML SYR SC SCH (09:00)
[2024-06-03] MEDS ORDERED: DULoxetine HCL 60 MG Capsule DR PO SCH (09:00)
[2024-06-03] MEDS ORDERED: Aspirin 81 MG TabEC PO SCH (09:00)
[2024-06-03] MEDS ORDERED: NS 1,000 ML IV SCH (09:10)
--- NOTE | 2024-06-03 10:35 | NUR ---
AM NOTE; SPEECH THERAPIST ABLE TO COME SEE PT THIS MORNING RECOMMENDING TO KEEP PT NPO AT THIS TIME, PT STILL HAD 2 EPISODES OF SVT 10-12 SEC EACH EPISODES PT ASYMPTOMATIC. MADE AWARE MAJOR GIFTS DIRECTOR ABLE TO GIVE MEDS WITH APPLESAUCE PT STILL HAVING COUGHING EPISODES WITH EACH BITE, PER DAUGHTER BOBBI PT HAS DYSPHAGIA AT BASELINE AND USUALLY PT TAKES MEDS WITH APPLESAUCE. PT HAS BEEN UP IN THE RECLINER SINCE SHIFT CHANGE THIS MORNING, ORAL CARE PROVIDED PT HAS A VERY WEAK PRODUCTIVE COUGH YELLOW THICK SPUTUM. FLUTTER VALVE OFFERED PT ABLE TO DEMONSTRATE OF USE. PT REMAINS ON ROOMAIR SATS KEPT ABOVE 90%, HRR SR 90'S WITH EPISODES OF SVT, SBP 130'S, AFEBRILE. WILL CONTINUE TO MONITOR
[2024-06-03] MEDS ORDERED: Metoprolol Tartrate 1 MG/ML 5 ML VIAL IV PRN (11:15)
[2024-06-03 12:13] VITALS: BP 136/68
[2024-06-03 15:25] VITALS: BP 135/75
--- NOTE | 2024-06-03 18:49 | NUR ---
PT SUMMARY; NO ACUTE CHANGE FORM LAST NOTE; NO MORE EPISODES OF SVT REPORTED SINCE THE MORNING DOSE OF METOPROLOL. PT REMAINS NPO, USES BEDSIDE COMMODE FOR TOILETING 1PA VIA WALKER FOR TRANSFERS. PT WAS DESATTING TO HIGH 80'S WITH EXERTION PT PLACED ON 2L OF O2 VIA NASAL CANNULA SATS KEPT ABOVE 90%, SBP 130'S, AFEBRILE. PT IMPULSIVE AT TIMES OR FORGETFUL SETTING BED ALARM OFF, PT HAS BEEN WANTING TO GO HOME. AT THE BEDSIDE TODAY AWARE OF THE PLAN OF CARE. NO OTHER ISSUES REPORTED WILL REPORT TO ONCOMING SHIFT
[2024-06-03 20:03] VITALS: BP 91/67
[2024-06-03 23:50] VITALS: BP 150/93
[2024-06-04] VITALS (7 sets, daily range): BP systolic 126–153; BP diastolic 64–90
[2024-06-04 04:04] LABS: Calcium, Blood 8.4 mg/dL (8.5-10.1); Potassium, Blood 4.7 mmol/L (3.5-5.5)
--- NOTE | 2024-06-04 04:54 | NUR ---
SHIFT SUMMARY ASSUMED CARE AT 1900. PT A&O2, CONFUSED TO DATE AND CIRCUMSTANCE. UPON EXERTION TO BSC, PT BECOMES TACHYPNEIC AND O2 SAT DECREASES. PT STATES UNABLE TO USE BEDPAN AND NEEDS TO GET UP TO BSC. PT PRESENTS WEAK, WET NONPRODUCTIVE COUGH WITH COARSE BILATERAL LOBES. PT CURRENTLY NPO BY SPEECH D/T FAILED SWALLOW STUDY. NO ORAL MEDS GIVEN. PT CONTINUES TO ATTEMPT TO GET OUT OF BED IN MOMENTS OF CONFUSION NOT REMEMBERING WHERE SHE IS. BED AT LOWEST POSITION AND BED ALARM ON WITH CALL LIGHT WITHIN REACH.
[2024-06-04] MEDS ORDERED: Pantoprazole Sodium 40 MG Injection IV SCH (06:00)
[2024-06-04] MEDS ORDERED: Levothyroxine Sodium 0.125 MG Tab PO SCH (06:00)
--- NOTE | 2024-06-04 07:49 | NUR ---
MORNING VITAL SIGNS DONE AND STABLE FOR THIS PATIENT. PT ALERT AND OREINTED TO SELF ONLY. ANSWERED TO PLACE AND YEAR INCORRECTLY. ORIENTED PATIENT TO PLACE AND REASON FOR BEING HERE AND PT RESPONDED WITH YES, SHE REMEMBERS. PT DENIED CHEST PAIN/PRESSURE OR SOB. PT IS RESTING IN BED AND HAS THE CALL LIGHT WITHIN REACH.
--- NOTE | 2024-06-04 08:12 | NUR ---
DR HORN ROUNDED ON PATIENT AND RECCOMENDED POSSIBLE HOME O2 EVAULATION BEFORE POSSIBLE DISCHARGE TODAY. WILL AWAIT FURTHER ORDERS.
--- NOTE | 2024-06-04 09:48 | NUR ---
MORNIG MEDS HELD PATIENT WAS NOT ALERT ENOUGH TO TAKE THEM. ORAL CARE COMPLETED. PT TOOK OFF OXYGEN AND DESATTED TO 70%, NASAL CANNULA REPLACED & BUMPED UP TO 8L AND SATURATION BACK UP BETWEEN 95-100%. PATIENT COOL TO TOUCH AND HAD SWEAT BEADS ON NOSE AND FOREHEAD, CAPILLARY BLOOD GLUCOSE CHECKED AND READ AT 141. DOCTOR CALLED AND NOTIFIED AND STATED HE WOULD ROUND ON AGAIN SHORTLY. PATIENT CURRENTLY SITTING UPRIGHT AND AT BEDSIDE, HAS CALL LIGHT WITHIN REACH.
[2024-06-04] MEDS ORDERED: Ipratropium/Albuterol SulF 2.5-0.5MG/3 ML Amp INH SCH (11:35)
--- NOTE | 2024-06-04 11:36 | NUR ---
NEW IV PLACED IN LEFT RADIAL PREVIOUS IV HAD GONE BAD. PT RESTING IN BED WITH EVEN TACHY BREATHS AND VITAL SIGNS ARE STABLE AT THIS TIME. PT HAS CALL LIGHT WITHIN REACH.
[2024-06-04 11:55] LABS: BASOPHILS ABSOLUTE AUTO 0.07 K/mm3 (0.00-0.23); BASOPHILS PERCENT AUTO 0 % (0-2); EOSINOPHILS PERCENT AUTO 0 % (0-6); Hemoglobin 13.8 g/dL (11.5-16.0); IMMATURE GRAN ABSOLUTE AUTO 0.57 K/mm3 (0.00-0.10); IMMATURE GRAN PERCENT AUTO 3 % (0-1); LYMPHOCYTES ABSOLUTE AUTO 0.88 K/mm3 (0.84-5.20); LYMPHOCYTES PERCENT AUTO 5 % (21-46); MONOCYTES ABSOLUTE AUTO 1.21 K/mm3 (0.16-1.47); MONOCYTES PERCENT AUTO 7 % (4-13); Mean Corpuscular HGB 28.1 pg (26.0-34.0); Mean Corpuscular HGB Conc 31.4 g/dL (31.5-36.5); Mean Corpuscular Volume 90 fL (80-100); Mean Platelet Volume 9.8 fL (9.1-12.4); NEUTROPHILS ABSOLUTE AUTO 15.98 K/mm3 (1.96-9.15); NEUTROPHILS PERCENT AUTO 85 % (41-73); NRBC ABSOLUTE 0.02 K/mm3 (0.00-0.02); NRBC Auto 0.1 /100 WBC (0.0-0.2); Platelet Count 305 K/mm3 (150-400); RDW Coefficient Variation 14.1 % (11.7-14.2); RDW Standard Deviation 46.2 fL (35.1-46.3); Red Blood Cell Count 4.91 M/mm3 (3.80-5.20); White Blood Cell Count 18.71 K/mm3 (4.00-11.30)
[2024-06-04] MEDS ORDERED: Ipratropium Bromide INH 0.02% 0.5 mg/2.5ML Vial INH PRN (12:15)
--- NOTE | 2024-06-04 12:42 | NUR ---
CHEST X-RAY DONE, IPRATROPRIUM TREATMENT DONE BY RESPIRATORY. LABS DRAWN AND WBC & PROCALCITONIN WAS ELEVATED. MD HORN NOTIFIED AND ASKED ABOUT POSSIBLY STARTING TPN NUTRITION.
[2024-06-04] MEDS ORDERED: Ampicillin Sod/Sulbactam Sod 1.5 GM in NS 100 ML IV SCH (13:00)
[2024-06-04] MEDS ORDERED: NS 100 ML IV ONE ×2 (13:36→17:03)
[2024-06-04] MEDS ORDERED: Ampicillin Sod/Sulbactam Sod 1.5 GM ONE ×2 (13:36→17:03)
[2024-06-04] MEDS ORDERED: Dexamethasone Sodium Phosphate 4 MG/ML 1ML Vial IV SCH (14:00)
--- NOTE | 2024-06-04 14:06 | NUR ---
DR. HORN ROUNDED AND STATED HE PUT SOME NEW ORDERS IN. LAB ROMINA BLOOD CULTURES & ANTIBIOTICS WERE STARTED VIA IV. PER EMAR AFTERNOON MEDS WERE GIVEN AND TOLERATED WELL. DAUGHTER IS AT BEDSIDE, PT HAS CALL LIGHT WITHIN REACH AND BED ALARM IS ON.
--- NOTE | 2024-06-04 15:53 | NUR ---
PT REQUESTED TO USE BED SIDE COMMODE, GAIT BELT ON, USED FRONT WHEELED WALKER. WAS HYPEROXYGENATED BEFORE STARTING TO 7L, SATTED TO 80% AND NEEDED TO BE BUMPED UP TO 9L. TOLERATED USING THE BEDSIDE COMMODE WELL, ONCE GOT BACK INTO BED SHE WAS DROPPED TO 3L AND SATTING BETWEEN 94-98%. PT AT LOWEST POSITION, CALL LIGHT WITHIN REACH AND RESTING WITH EVEN UNLABORED BREATHING.
[2024-06-04] MEDS ORDERED: NS 1,000 ML IV SCH (16:00)
--- NOTE | 2024-06-04 18:34 | NUR ---
PT ALERT AND ORIENTED TO PERSON BUT NOT TO SITUATION OR PLACE. REORIENTED AND STATED SHE RECALLED BEING HERE. ON TELE SHOWING SINUS TACHY WITH A RATE BETWEEN 110-115. BLOOD PRESSURE HAS BEEN STABLE AND O2 SATURATION >90% ON 2L VIA NASAL CANNULA @ START OF SHIFT. PATIENT REMOVED NASAL CANNULA AND DE-SATTED TO 70%, NASAL CANNULA WAS REPLACED AND BUMPED UP TO 8L AND SATTING 98-100%. ONCE SHE SETTLED BACK IN BED SHE WAS DROPPED BACK DOWN TO 5L AND SATTING >90%. MORNING MEDS WERE HELD PATIENT WAS NOT ALERT ENOUGH SHE WOULD FALL ASLEEP WHILE TALKING TO HER. DR. HORN WAS NOTIFIED AND ROUNDED ON HER AGAIN AND ORDERED A CHEST X-RAY.IT SHOWED ATELECTASIS & PNEMONIA. LAB ROMINA CBC, WBC & PROCALCITONIN WERE ELEVATED AND PER EMAR SHE WAS STARTED ON ANTIBIOTICS. PT GOT UP TO BED SIDE COMMODE AND WAS HYHPEROXYGENATED BEFORE @7L AND DESATTED TO 80% AND WAS BUMPED TO 9L. ONCE BACK INTO BED SHE WENT DOWN TO 4L AND SATTING >90%. PT WORKED WITH HER TODAY, AND A POWERGLIDE WAS ATTEMPTED. PARENTAL NUTRITION IS SET TO START 06/05 AND NS FLUIDS ARE RUNNING AT 50MLS/HR. WILL RELAY THIS TO ONCOMING NURSE.
[2024-06-05 00:45] VITALS: BP 134/67
[2024-06-05] MEDS ORDERED: Ampicillin Sod/Sulbactam Sod 1.5 GM ONE ×3 (00:59→11:41)
[2024-06-05] MEDS ORDERED: NS 100 ML IV ONE ×3 (00:59→11:41)
[2024-06-05 03:47] VITALS: BP 119/56
[2024-06-05 04:16] LABS: BASOPHILS ABSOLUTE AUTO 0.04 K/mm3 (0.00-0.23); BASOPHILS PERCENT AUTO 0 % (0-2); EOSINOPHILS ABSOLUTE AUTO 0.14 K/mm3 (0.00-0.68); EOSINOPHILS PERCENT AUTO 1 % (0-6); Hematocrit 37.6 % (33.0-51.0); IMMATURE GRAN ABSOLUTE AUTO 0.25 K/mm3 (0.00-0.10); IMMATURE GRAN PERCENT AUTO 1 % (0-1); LYMPHOCYTES ABSOLUTE AUTO 0.43 K/mm3 (0.84-5.20); LYMPHOCYTES PERCENT AUTO 2 % (21-46); MONOCYTES ABSOLUTE AUTO 1.12 K/mm3 (0.16-1.47); MONOCYTES PERCENT AUTO 5 % (4-13); Mean Corpuscular HGB 28.8 pg (26.0-34.0); Mean Corpuscular HGB Conc 31.9 g/dL (31.5-36.5); Mean Corpuscular Volume 90 fL (80-100); Mean Platelet Volume 9.5 fL (9.1-12.4); NEUTROPHILS ABSOLUTE AUTO 21.52 K/mm3 (1.96-9.15); NEUTROPHILS PERCENT AUTO 92 % (41-73); NRBC ABSOLUTE 0.03 K/mm3 (0.00-0.02); NRBC Auto 0.1 /100 WBC (0.0-0.2); Platelet Count 251 K/mm3 (150-400); RDW Coefficient Variation 14.5 % (11.7-14.2); RDW Standard Deviation 47.6 fL (35.1-46.3); Red Blood Cell Count 4.17 M/mm3 (3.80-5.20)
[2024-06-05 04:32] LABS: Bun/Creatinine Ratio 27.4 (12.0-20.0); Calcium, Blood 8.3 mg/dL (8.5-10.1); Creatinine, Blood 1.13 mg/dL (0.40-1.00); Potassium, Blood 4.4 mmol/L (3.5-5.5)
--- NOTE | 2024-06-05 06:42 | NUR ---
SHIFT SUMMARY RESUMED CARE AT 1900. PT MUCH MORE LETHARGIC THAN YESTERDAY AT THE BEGINING OF SHIFT. PT ORIENTED TO SELF AND FOLLOWS SIMPLE COMMANDS. PT OVERNIGHT HAD 5 BEATS OF SVT THEN ABOUT AN HR LATER HAD A 3 SEC RUN OF SVT. PT HAS NOT HAD PRODUCTIVE COUGH TO COLLECT SPUTUM SAMPLE. NO UNRINE OUTPUT THE FIRST HALF OF THE SHIFT DUE TO THE PT STATING SHE IS NOT ABLE TO USE GO IN BED. ATTEMPTED TO GET UP TO BEDSIDE COMMODE BUT PT TOO WEAK TO PIVOT. PT HAD APPROX 300 ML OF URINE VIA BLADDER SCAN. SHORTLY AFTER, PT VOIDED IN BED. PT MORE ALERT THIS AM YELLING FROM ROOM. PT STATES SHE WOULD LIKE TO GO HOME. PT BED AT LOWEST POSITION, BED ALARM ON AND CALL LIGHT WITHIN REACH.
[2024-06-05 07:49] VITALS: BP 136/75
--- NOTE | 2024-06-05 10:46 | NUR ---
AM NOTES; PT WAS ASSISTED UP IN THE RECLINER THIS MORNING PT DESATS TO LOW 80'S WITH EXERTION PT CURRENTLY ON 2L OF O2 AT THIS TIME, SATS ABOVE 90% WITH REST. PT HAS BEEN YELLING OUT GO HOME AND HER HUSBANDS NAME, PT HAS BEEN TRYING TO GET OUT OF THE RECLINER SETTINGS BED ALARM OFF MULTIPLE TIMES, PT NOW HAS A CLINICAL SITTER. GENE MADE AWARE OF PT'S CONDITION. AND DUAGHTER WILL COME IN TODAY AT 1PM TO DISCUSS PLAN WITH THE DR. HRR ST 110-120'S, SBP 130'S, AFEBRILE. WILL CONTINUE TO MONITOR
[2024-06-05] MEDS ORDERED: Lactated Ringer's 1,000 ML IV SCH (11:00)
[2024-06-05 15:22] VITALS: BP 150/73
--- NOTE | 2024-06-05 17:10 | NUR ---
MET WITH PATIENT AND HER FAMILY ( AND DAUGHTER AT BEDSIDE. SON ON THE PHONE). PROVIDERS AND I DISCUSSED CARE OPTIONS. WE DISCUSSED PLACING A PEG TUBE TO PROVIDE NUTRITION AND COMPLICATIONS THAT MAY ARRISE FROM THAT OPTION. WE ALSO DISCUSSED COMFORT MEASURES. FAMILY IS LEANING TOWARDS PURSUING COMFORT AND HOSPICE SERVICES. ONE SON IS CURRENTLY HIKING AND OUT OF CELL RANGE HE WILL BE AVALIABLE TOMORROW AND FAMILY WILL RELAY THESE OPTIONS WITH HIM AND MAKE A FINAL DECISION TOMORROW. PC WILL REMAIN AVALIABLE.
--- NOTE | 2024-06-05 17:53 | NUR ---
PATIENT TRANSFER NOTE: PT TAKEN TO ROOM 345 WITH ALL PERSONAL BELONGINGS VIA BED. TELE CONNECTED AND SHOWING SINUS TACHY WITH RATE BETWEEN 110-120. O2 SATURATION 98% ON 3L. NOTIFIED HE WAS ON THE UNIT WHEN THE TRANSFER OCCURED.
[2024-06-05 18:14] VITALS: BP 139/90
--- NOTE | 2024-06-05 18:37 | NUR ---
Pt transfer to floor at 1715, pt is confused, a-fib on tele, skin intact, show no sign of SOB, on 2L NC, shows no signs of pain. Confused, frequently calls out, ambulates wit 1x assist to bedside comodo, resting comfortable.
[2024-06-05 20:11] VITALS: BP 121/81
[2024-06-05] MEDS ORDERED: LORazepam 2 MG/ML 1ML Injection IV ONE (23:05)
--- NOTE | 2024-06-05 23:05 | NUR ---
Dr. Loyd notified by RN regarding restlessness, agitation, increased confusion. MD gave telephone order for 0.5 mg Ativan IV once.
[2024-06-06 04:26] VITALS: BP 146/87
[2024-06-06 04:40] VITALS: BP 134/70
[2024-06-06 05:38] LABS: BASOPHILS ABSOLUTE AUTO 0.05 K/mm3 (0.00-0.23); BASOPHILS PERCENT AUTO 0 % (0-2); EOSINOPHILS PERCENT AUTO 0 % (0-6); Hematocrit 35.6 % (33.0-51.0); Hemoglobin 11.1 g/dL (11.5-16.0); IMMATURE GRAN ABSOLUTE AUTO 0.44 K/mm3 (0.00-0.10); IMMATURE GRAN PERCENT AUTO 2 % (0-1); LYMPHOCYTES ABSOLUTE AUTO 0.41 K/mm3 (0.84-5.20); LYMPHOCYTES PERCENT AUTO 2 % (21-46); MONOCYTES ABSOLUTE AUTO 0.66 K/mm3 (0.16-1.47); MONOCYTES PERCENT AUTO 3 % (4-13); Mean Corpuscular HGB 28.9 pg (26.0-34.0); Mean Corpuscular HGB Conc 31.2 g/dL (31.5-36.5); Mean Corpuscular Volume 93 fL (80-100); Mean Platelet Volume 10.8 fL (9.1-12.4); NEUTROPHILS ABSOLUTE AUTO 22.16 K/mm3 (1.96-9.15); NEUTROPHILS PERCENT AUTO 93 % (41-73); NRBC ABSOLUTE 0.05 K/mm3 (0.00-0.02); NRBC Auto 0.2 /100 WBC (0.0-0.2); Platelet Count 245 K/mm3 (150-400); RDW Standard Deviation 50.4 fL (35.1-46.3); Red Blood Cell Count 3.84 M/mm3 (3.80-5.20); White Blood Cell Count 23.72 K/mm3 (4.00-11.30)
[2024-06-06 07:01] LABS: Albumin, Blood 2.2 g/dL (3.4-5.0); Albumin/Globulin Ratio 0.6 (0.8-1.8); Bilirubin, Total 0.7 mg/dL (0.1-1.0); Bun/Creatinine Ratio 29.8 (12.0-20.0); Calcium, Blood 8.4 mg/dL (8.5-10.1); Creatinine, Blood 1.14 mg/dL (0.40-1.00); Total Protein, Blood 6.2 g/dL (6.4-8.2)
[2024-06-06 07:02] LABS: Potassium, Blood 4.4 mmol/L (3.5-5.5)
[2024-06-06 07:06] VITALS: BP 137/79
[2024-06-06] MEDS ORDERED: Lactated Ringer's 1,000 ML IV SCH (07:35)
[2024-06-06] MEDS ORDERED: NS 250 ML IV PRN (08:00)
[2024-06-06] MEDS ORDERED: Sodium Chloride 0.45% 1,000 ML IV SCH (12:05)
[2024-06-06 15:10] VITALS: BP 140/91
[2024-06-06] MEDS ORDERED: Morphine Sulfate 20 MG/1ML 1 ML Oral Syringe SL PRN (15:30)
[2024-06-06] MEDS ORDERED: Scopolamine Hydrobromide Patch TOP PRN (15:30)
[2024-06-06] MEDS ORDERED: MEMA10 PO (15:39)
[2024-06-06] MEDS ORDERED: NIFE30ER PO (15:40)
[2024-06-06] MEDS ORDERED: LEVSOD100 PO (15:41)
[2024-06-06] MEDS ORDERED: Atropine Sulfate 1% Opth Soln 2ML BTL SL PRN (16:30)
--- NOTE | 2024-06-06 16:34 | NUR ---
Spiritual care visit conducted. Patient is lying in bed and unresponsive. Patient's family is bedside. They explain about the patient's poor prognosis and hospice election with tomorrow as a target date to return to [facility]. 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 I conducted a brief life review and provided therapeutic listening and prayer. Family showed signs of being comforted through their tears. I will continue to remain available.
--- NOTE | 2024-06-06 16:37 | NUR ---
MET WITH PATIENT AND FAMILY. PATIENT HAD A CHANGE SINCE YESTERDAY. TODAY SHE IS NOT RESPONSIVE. DISCUSSED TRANSITIONING GUILHERME TO COMFORT CARE. FAMILY IS AGREEABLE. DISCUSSED WITH PROVIDER. HE WILL REVIEW AND PLACE ORDERS NEEDED
--- NOTE | 2024-06-06 17:45 | NUR ---
PATIENT TRANSITIONED TO COMFORT CARE THIS SHIFT. FAMILY AT BEDSIDE THROUGOUT THE DAY AND HOPE TO TAKE PATIENT HOME ON HOSPICE. PATIENT UNRESPONSIVE TODAY. NO S/S OF PAIN ASSESSED. COMFORT MEDICATIONS ORDERED. PUREWICK IN PLACE, MIINIMAL URINE OUTPUT TODAY. CARE MANAGEMENT TO ARRANGE HOSPICE DISCHARGE TO [facility].
--- NOTE | 2024-06-07 00:08 | NUR ---
PT SON TO ROOM AT 0004
--- NOTE | 2024-06-07 04:19 | NUR ---
SHIFT SUMMARY PT APPEARS TO BE RESTING COMFORTABLY MUCH OF THE SHIFT. MEDICATED WITH ROXANOL TWICE THROUGHOUT SHIFT PER EMAR. SONJAUN, CAME IN AROUND MIDNIGHT AND SAT WITH PT. WILL CONTINUE TO MONITOR FREQUENTLY.
--- NOTE | 2024-06-07 13:53 | NUR ---
Spiritual care visit conducted. Patient's family is gathered outside the patient's room and introduces me to the patient's son Harry. We discuss the his trip here from [place], the family dision to have the patient remain in the hospital rather that going home on hospice due to her frail condition. I provided therapeutic listening, encouragement and a calming presence. Family responded well showed signs of being comforted.
--- NOTE | 2024-06-07 16:07 | NUR ---
ASSESSED GUILHERME THIS MORNING. SHE APPEARED COMFORTABLE. SHE WAS NON RESPONSIVE. FAMILY EXPRESSED CONCERNS ABOUT MOVING HER. I DISCUSSED WITH INDUSTRIAL ECOLOGIST ABOUT PATIENT STAYING SHE WAS NOT STABLE TO TRANSPORT AT THIS TIME.
--- NOTE | 2024-06-07 18:33 | NUR ---
PATIENT UNRESPONSIVE THRUGHOUT THE SHIFT. FAMILY AT BEDSIDE AND ARE VERY SUPPORTIVE. ROXANOL GIVEN X3 THIS SHIFT FOR AIR HUNGER. NO URINE OUTPUT THIS SHIFT, BLADDER SCAN PERFORMED AND SHOWED 400ML'S. ERWIN PLACED FOR COMFORT. FAMILY NO LONGER HAS PLANS TO TAKE PATIENT HOME.
--- NOTE | 2024-06-08 05:46 | NUR ---
SHIFT SUMMARY NOC PT UNRESPONSIVE. ON COMFORT CARE MEASURES. SON AT BEDSIDE. PT BREATHING REMAINS VERY SHALLOW. ON O2 3L/NC FOR COMFORT. PT MEDICATED WITH ROXANOL FOR AIR HUNGER. SON JAUN'Lb IS POA AND WANTS TO BE CONTACTED IF PT CONDITION DETERIORATES FURTHER OR PT PASSES, NUMBER ON FRONT OF CHART AND ON WHITEBOARD. POWERGLIDE IN DIANELYS NOT CURRENTLY BEING USED. PT IS RESTING COMFORTABLY WITH BED IN LOWEST POSITION, AND CALL LIGHT WITHIN REACH.
--- NOTE | 2024-06-08 17:18 | NUR ---
PT IS RESTING AND APPEARS COMFORTABLE AT THIS TIME. HER RESPIRATIONS ARE SHALLOW AND EVEN. NO SIGNS OF AIR HUNGER OR RESP. DISTRESS. FAMILY IS AT BEDSIDE. PROVIDED THERAPUTIC CONVERSATION. PROVIDED A QUILT TO THE PATIENT. REVIEWED NATURAL PROCESSES. PATIENT IS COOL TO THE TOUCH. PC WILL REMAIN AVALIABLE.
--- NOTE | 2024-06-08 18:26 | NUR ---
PATIENT UNREPSONSIVE AND APPEARS COMFORTABLE THROUGHOUT THE DAY. FAMILY AT BEDSIDE FOR MOST OF THE SHIFT. TURNED Q2 HOURS AND ORAL CARE COMPLETED. ERWIN TO GRAVITY FOR RETENSION AND COMFORT. FAMILY SUPPORIVE AND HELPFUL WITH CARE. NO NEW CONCERNS THIS SHIFT.
--- NOTE | 2024-06-09 06:42 | NUR ---
NO ACUTE CHANGES DURING SHIFT. PT UNRESPONSIVE BUT APPEARS COMFORTABLE. SON AT BEDSIDE THROUGHOUT SHIFT.
--- NOTE | 2024-06-09 18:48 | NUR ---
SUMMARY- PT AAOX0-RESPONSIVE TO PAIN ONLY. MEDICATED X2 W/ROXANOL THIS SHIFT FOR PAIN/SOB. PT GIVEN NEW SCOPOLOMIN PATCH AND MEDICATED WITH ATROPINE X3 THIS SHIFT. PT IS HAVING PERIODS OF APNEA UP TO 30 SECONDS.
--- NOTE | 2024-06-10 05:47 | NUR ---
END OF SHIFT SUMMARY PT REMAINS ON COMFORT CARE. GALLITO ZAMORANO REMAINED AT BEDSIDE. PT APPEARS COMFORTABLE, RESP SHALLOW AND QUIET, SOME PERIODS OF APNEA. SON AGREES WITH PLAN TO GIVE ROXANOL MORE CONSISTANTLY AND AT MININIMUM Q4H TO MAINTAIN COMFORT, AND MORE FREQUENTLY NEEDED. ORAL CARE AND REPOSITIONING COMPLETED Q2H. ERWIN REMAINS IN PLACE.
--- NOTE | 2024-06-10 11:03 | NUR ---
PATIENT TA 1045. TWO-RN VERIFICATION PERFORMED BY WARNER VALLECILLO RN AND LAKSHMI FINNN. FINAL DISCHARGE STARTED. AWAITING FAMILY DECISION FOR HOME PRIOR TO MOVING FORWARD. DONOR LINE NOTIFIED; PT NOT A CANDIDATE.
--- NOTE | 2024-06-10 11:23 | NUR ---
FAMILY LEAVING BEDSIDE. THEY WOULD LIKE [facility] [place].
--- NOTE | 2024-06-10 11:34 | NUR ---
Pt eminent bedside nurse and palliative nurse at bedside. pt family support given offered prayer. updated dyana nurse.
--- NOTE | 2024-06-10 12:26 | NUR ---
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 PT HAD FAMILY AT BEDSIDE THEY COLLECTED BELONGINGS THEY WANTED TO KEEP. PT WAS PICKED UP BY [facility] FROM [facility] @1200.
== END 2024-06-10 10:45 | DRG 177 ==
LOC: ER 10:06 → PCU 10:07 → MEDS 06-03 14:59 → PCU 06-03 14:59 → MEDS 06-05 17:37
PROVIDERS: Emergency Medicine; ADMIT Internal Medicine
PROC: 3E03329 Introduction of Other Anti-infective into Peripheral Vein, Percutaneous Approach (ICD-10-PCS; 2024-06-02)
PROC: 3E0333Z Introduction of Anti-inflammatory into Peripheral Vein, Percutaneous Approach (ICD-10-PCS; principal; 2024-06-04)
DX: U07.1 COVID-19 (principal); G93.41 Metabolic encephalopathy; J69.0 Pneumonitis due to inhalation of food and vomit; J96.01 Acute respiratory failure with hypoxia; Z51.5 Encounter for palliative care; I47.10 Supraventricular tachycardia, unspecified; E87.0 Hyperosmolality and hypernatremia; F05 Delirium due to known physiological condition; F03.A11 Unspecified dementia, mild, with agitation; F03.A4 Unspecified dementia, mild, with anxiety; F03.A3 Unspecified dementia, mild, with mood disturbance; Z66 Do not resuscitate; R13.10 Dysphagia, unspecified; J98.4 Other disorders of lung; E86.0 Dehydration; I12.9 Hypertensive chronic kidney disease with stage 1 through stage 4 chronic kidney disease, or unspecified chronic kidney disease; N18.31 Chronic kidney disease, stage 3a; E11.22 Type 2 diabetes mellitus with diabetic chronic kidney disease; E11.40 Type 2 diabetes mellitus with diabetic neuropathy, unspecified; I69.391 Dysphagia following cerebral infarction; E03.9 Hypothyroidism, unspecified; G89.29 Other chronic pain; K21.9 Gastro-esophageal reflux disease without esophagitis; Z99.81 Dependence on supplemental oxygen; Z88.2 Allergy status to sulfonamides; Z88.8 Allergy status to other drugs, medicaments and biological substances; Z88.6 Allergy status to analgesic agent; Z79.82 Long term (current) use of aspirin; Z90.710 Acquired absence of both cervix and uterus; Z79.890 Hormone replacement therapy; Z98.890 Other specified postprocedural states; Z79.899 Other long term (current) drug therapy; Z91.81 History of falling; Z99.3 Dependence on wheelchair; Z79.52 Long term (current) use of systemic steroids
CPT/HCPCS: 36415; 71045; 80048; 80053; 82947; 83735; 84145; 84443; 85025; 87040; 92610; 93005; 93010; 94640; 94664; 94760; 94762; 96372; 96374; 96375; 97110; 97162; 97165; 97530; 97535; 99285-25; A9270; G0378; J0295; J1100; J1650; J2060; J2470; J3475; J7030; J7120